=== PATIENT | female | born 2005 | race Caucasian/White ===

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

== ENCOUNTER 2025-02-17 20:47 | Emergency (ER) | payer BC, SELFPAY ==
[2025-02-17] VITALS (10 sets, daily range): BP systolic 130–159; BP diastolic 71–107; PULSE 73–91; RESP 18; TEMP 36.8; O2SAT 98–100; BMI 34.4
--- NOTE | 2025-02-17 21:09 | HMH.EDGENADL ---
Discharge Plan Disposition Patient Disposition: Home, Self-Care Condition: Good Prescriptions Prescriptions: No Action No Known Home Medications Referrals Follow up/Referrals: Chata Whitney PA [Primary Care Provider, Family Practice] - See instructions Activity Restrictions/Add. Instructions Additional Instructions/Restrictions: Please return to the ER if any new or worsening symptoms. If your symptoms persist, please see your primary care doctor and look into a referral for gastroenterology. Clinical Impressions Clinical Impression: Abdominal pain Qualifiers: Abdominal location: generalized Qualified Code(s): R10.84 - Generalized abdominal pain Instructions Patient Instructions: DI for Acute Abdominal Pain Print Language Print Language: Mohawk Discharge ED Provider: Mynor Montero General Adult HPI <ABY Shannon - Last Filed: 02/17/25 21:51> General Chief complaint: Abdominal Pain Stated complaint: abdominal pain x two weeks Time Seen by Provider: 02/17/25 21:02 Mode of Arrival: Ambulatory Source of Information: Patient and Significant Other Description of Symptoms (Recalled from ER Triage Doc. by RN): patient presents for abdominal pain that started 3 days ago. patient stated that the pain is everywhere and rates it 10/10. she endorses nausea/vomiting with it. no urinary or bowel issues. History of Present Illness HPI narrative: 19-year-old female presents the emergency department with diffuse abdominal pain that she states has been going on for 2 weeks that is fairly consistent, worsened within the last 3 days, she has associated nausea and vomiting for the last 2 weeks states that she cannot keep anything down but water . Patient denies any fever or chills, denies any overt chest pain, does state that she has chest pain , at times with her abdominal pain, denies any melena hematochezia hematemesis or hemoptysis, denies any constipation diarrhea no urinary symptomatology, no vaginal bleeding no vaginal discharge, last menstrual cycle was last month. 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 Initial triage vitals unremarkable. Please note that above description of symptoms, in this electronic medical record under categorization of recalled from ER triage doctor by RN are reflective of an initial nursing assessment, however, is not reflective of my full history and physical exam that was personally taken and clarified. Consequentially, this preceding description of symptoms, which may include the patient's categorized chief complaint in the EMR, do not reflect my personal clinical impression, and the ultimate description of history of present illness and patient stated complaints should be deferred to this section of the note. Unless stated otherwise or congruent with this section of the note, additional signs, symptoms, or incongruence should be interpreted as inaccurate with my clinical impression. Onset (ago): week(s) Related Data Home Medications ?Medication ?Instructions ?Recorded ?Confirmed No Known Home Medications 12/22/24 12/22/24 Allergies Allergy/AdvReac Type Severity Reaction Status Date / Time cefdinir (From Omnicef) Allergy Intermediate Unknown Verified 12/22/24 09:43 allergy reaction latex Allergy Intermediate Rash Verified 12/22/24 09:43 morphine Allergy Intermediate Unknown Verified 12/22/24 09:43 allergy reaction Penicillins Allergy Intermediate Unknown Verified 12/22/24 09:43 allergy reaction Sulfa (Sulfonamide Allergy Intermediate Unknown Verified 12/22/24 09:43 Antibiotics) allergy reaction [facility] <ABY Shannon - Last Filed: 02/17/25 21:51> [facility] Disclaimer: The information contained in this section may have been updated after the patient was seen, as this information can be updated by other users. 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 ([facility] 11/03/2006) Cardiac murmur Surgical History History of cholecystectomy History of open heart surgery Status post patch repair of the right coronary artery fistula ([facility] 11/03/2006) Family History Other No significant family history Social History Smoking Status: Light tobacco smoker alcohol intake: never current occupational status: student Travel in the last 8 weeks?: None Have you lived/traveled outside US in past 30 days?: No Contact w/someone who lives/traveled outside US past 30 days?: No Exposure to someone with infectious disease in past 14 days?: No Do you have a fever (greater than 100.4 F or 38 C)?: No Have you tested positive for COVID-19?: No Exposed to someone with COVID-19 in past 14 days?: No Do you have a sore throat?: No Do you have a cough?: No Do you have any weakness?: No Do you have any diarrhea?: No Are you experiencing any unusual bleeding?: No Do you have any muscle aches/pain?: No Do you have any abdominal pain?: No Are you experiencing loss of taste or smell?: No <ABY Shannon - Last Filed: 02/17/25 21:51> ROS Obtained: Yes All systems reviewed & no additional complaints except as documented Physical Exam <ABY Shannon - Last Filed: 02/17/25 21:51> General General appearance: alert and in no apparent distress Head Head exam: atraumatic and normocephalic Eye Eye exam: Present PERRL and EOMI ENT ENT exam: Present mucous membranes moist Neck Neck exam: Present normal inspection Chest Chest inspection: Present normal inspection and symmetric chest wall rise Respiratory Respiratory exam: Present normal lung sounds bilaterally; Absent respiratory distress Cardiovascular Cardiovascular exam: Present regular rate and normal rhythm Abdominal Exam Abdominal exam: Present soft and tenderness; Absent guarding, rebound or rigidity Abdominal tenderness: Present diffuse and mild Extremities Exam Extremities exam: Present normal inspection Neurological Exam Neurological exam: Present alert and oriented X3 Psychiatric Psychiatric exam: Present normal affect Skin Skin exam: Present warm and dry Medical Decision Making <ABY Shannon - Last Filed: 02/17/25 21:51> Medical Records Medical records reviewed: Yes I reviewed the patient's medical records. Screening: Per USPSTF and CDC recommendations, given the prevalence of disease in our region, it is our hospital?s policy to screen for HIV and viral Hepatitis for all patients aged 18 and over and those with ongoing risk factors. [place] Inquiry Pt receiving controlled substance: No Vital Signs: 02/17/25 20:58 02/17/25 21:15 02/17/25 21:30 Temperature 98.2 F Temperature Source Oral Pulse Rate 89 87 Pulse Rate [Right Brachial] 91 H Respiratory Rate 18 Blood Pressure Blood Pressure [Right Arm] 140/84 Blood Pressure Mean Blood Pressure Mean [Right Arm] 102 Blood Pressure Source [Right Arm] Automatic Cuff Blood Pressure Position [Right Arm] Sitting 02 Sat by Pulse Oximetry 100 100 100 Oxygen Delivery Method Room Air Room Air Room Air 02/17/25 21:30 02/17/25 21:45 02/17/25 22:00 Temperature Temperature Source Pulse Rate 89 81 Pulse Rate [Right Brachial] Respiratory Rate Blood Pressure 151/107 H 159/100 H Blood Pressure [Right Arm] Blood Pressure Mean 116 119 Blood Pressure Mean [Right Arm] Blood Pressure Source [Right Arm] Blood Pressure Position [Right Arm] 02 Sat by Pulse Oximetry 99 98 Oxygen Delivery Method Room Air 02/17/25 22:30 02/17/25 23:00 Temperature Temperature Source Pulse Rate 89 88 Pulse Rate [Right Brachial] Respiratory Rate Blood Pressure 130/84 134/71 Blood Pressure [Right Arm] Blood Pressure Mean 99 92 Blood Pressure Mean [Right Arm] Blood Pressure Source [Right Arm] Blood Pressure Position [Right Arm] 02 Sat by Pulse Oximetry 98 100 Oxygen Delivery Method Lab Data Lab results reviewed: Yes I reviewed the patient's lab results. Lab Results 02/17/25 21:28: WBC 7.2, RBC 5.53 H, Hgb 14.9, Hct 45.2, MCV 81.7, MCH 26.9 L, MCHC 33.0, RDW 12.5, Plt Count 285, MPV 11.0 H, Neut % (Auto) 69.2, Lymph % (Auto) 21.4, Owen % (Auto) 6.0, Eos % (Auto) 2.5, Baso % (Auto) 0.6, Neut # (Auto) 5.0, Lymph # (Auto) 1.5, Owen # (Auto) 0.4, Eos # (Auto) 0.2, Baso # (Auto) 0.0, Sodium 139, Potassium 4.1, Chloride 100, Carbon Dioxide 28, Anion Gap 15.1 H, BUN 8, Creatinine 0.70, Estimated Creat Clear 222, Estimated GFR 108, Est GFR ( Amer) 130, Glucose 101 H, Lactate 1.1, Calcium 9.7, Magnesium 1.9, Total Bilirubin 0.5, AST 37 H, ALT 25, Alkaline Phosphatase 72, Total Protein 8.8 H, Albumin 5.1 H, Globulin 3.7 H, Albumin/Globulin Ratio 1.4, Lipase 55, Serum HCG, Qual Negative 02/17/25 22:23: Urine Color Yellow, Urine Appearance Clear, Urine pH 7.0, Ur Specific [place] 1.010, Urine Protein Negative, Urine Glucose (UA) Negative, Urine Ketones Negative, Urine Blood Negative, Urine Nitrate Negative, Urine Bilirubin Negative, Urine Urobilinogen 0.2, Ur Leukocyte Esterase Negative, Urine RBC None, Urine WBC None, Ur Squamous Epith Cells 3-5, Urine Bacteria None 02/17/25 22:24: Urine Opiates Screen Negative, Urine Methadone Screen Negative, Ur Barbituates Screen Negative, Ur Phencyclidine Scrn Negative, Ur Amphetamines Screen Negative, U Benzodiazepines Scrn Negative, Urine Cocaine Screen Negative, U Marijuana (THC) Screen Negative 02/17/25 21:28 02/17/25 21:28 Orders (Tests/Meds): ED MEDICATIONS Discontinued Medications Generic Name Dose Route Start Last Admin Trade Name Magda PRN Reason Stop Dose Admin Iopamidol 75 ml 02/17/25 22:12 02/17/25 22:14 Iopamidol-370 (76%);100ml Bottle IV 02/17/25 22:13 75 ml ONCE ONE Administration Ketorolac Tromethamine 15 mg 02/17/25 21:18 02/17/25 22:01 Ketorolac 15mg/Ml Vial IV 02/17/25 21:19 15 mg ONCE ONE Administration Metoclopramide HCl 10 mg 02/17/25 23:26 02/17/25 23:54 Metoclopramide Hcl 10mg/2ml Vial IVP 02/17/25 23:27 10 mg ONCE ONE Administration Ondansetron HCl 4 mg 02/17/25 21:18 02/17/25 22:01 Ondansetron 4mg/2ml Vial IV 02/17/25 21:19 4 mg ONCE ONE Administration Sodium Chloride 10 ml 02/17/25 22:12 02/17/25 22:13 Sodium Chloride 0.9% 10ml Syr (Rad Only) IV 02/17/25 22:13 10 ml ONCE ONE Administration ORDERS Category Date Time Status CT abdomen pelvis w con Stat Cat Scan 02/17/25 21:16 Completed Complete Blood Count Auto Diff Stat Lab 02/17/25 21:28 Completed Comprehensive Metabolic Panel Stat Lab 02/17/25 21:28 Completed Drug Screen,Urine Stat Lab 02/17/25 22:24 Completed HCG Qualitative, Serum Stat Lab 02/17/25 21:28 Completed Lactic Acid Stat Lab 02/17/25 21:28 Completed Lipase Stat Lab 02/17/25 21:28 Completed Magnesium Stat Lab 02/17/25 21:28 Completed Urinalysis and Microscopic Stat Lab 02/17/25 22:23 Completed Medical Decision Narrative: 19-year-old female presents emergency room with diffuse abdominal pain nausea and vomiting for which she states is going on for 2 weeks, differential diagnose include but not limited to, acute UTI, colitis, ileitis, mesenteric adenitis, pancreatitis, appendicitis, constipation, bowel obstruction, ileus, hyperemesis cannabinoid syndrome, pyelonephritis, among others I discussed this patient case with the attending physician Dr. Montero he saw and examined the patient as well. Will obtain basic laboratory studies, CT and pelvis with contrast, UDS, lactic acid level lipase level magnesium level, UA, hCG qualitative, 15 mg IV Toradol be given for pain and 4 mg IV Zofran CBC is unremarkable Minimal AST elevation at 37, no lipase elevation no lactic acidosis otherwise unremarkable CMP. I discussed this patient's case with the attending physician Dr. Montero at shift change he will be assuming the patient's care/workup, disposition is pending urinalysis laboratory studies and imaging studies. <Mynor Montero, DO - Last Filed: 02/18/25 00:06> Vital Signs: 02/17/25 20:58 02/17/25 21:15 02/17/25 21:30 Temperature 98.2 F Temperature Source Oral Pulse Rate 89 87 Pulse Rate [Right Brachial] 91 H Respiratory Rate 18 Blood Pressure Blood Pressure [Right Arm] 140/84 Blood Pressure Mean Blood Pressure Mean [Right Arm] 102 Blood Pressure Source [Right Arm] Automatic Cuff Blood Pressure Position [Right Arm] Sitting 02 Sat by Pulse Oximetry 100 100 100 Oxygen Delivery Method Room Air Room Air Room Air 02/17/25 21:30 02/17/25 21:45 02/17/25 22:00 Temperature Temperature Source Pulse Rate 89 81 Pulse Rate [Right Brachial] Respiratory Rate Blood Pressure 151/107 H 159/100 H Blood Pressure [Right Arm] Blood Pressure Mean 116 119 Blood Pressure Mean [Right Arm] Blood Pressure Source [Right Arm] Blood Pressure Position [Right Arm] 02 Sat by Pulse Oximetry 99 98 Oxygen Delivery Method Room Air 02/17/25 22:30 02/17/25 23:00 Temperature Temperature Source Pulse Rate 89 88 Pulse Rate [Right Brachial] Respiratory Rate Blood Pressure 130/84 134/71 Blood Pressure [Right Arm] Blood Pressure Mean 99 92 Blood Pressure Mean [Right Arm] Blood Pressure Source [Right Arm] Blood Pressure Position [Right Arm] 02 Sat by Pulse Oximetry 98 100 Oxygen Delivery Method Lab Data Lab Results 02/17/25 21:28: WBC 7.2, RBC 5.53 H, Hgb 14.9, Hct 45.2, MCV 81.7, MCH 26.9 L, MCHC 33.0, RDW 12.5, Plt Count 285, MPV 11.0 H, Neut % (Auto) 69.2, Lymph % (Auto) 21.4, Owen % (Auto) 6.0, Eos % (Auto) 2.5, Baso % (Auto) 0.6, Neut # (Auto) 5.0, Lymph # (Auto) 1.5, Owen # (Auto) 0.4, Eos # (Auto) 0.2, Baso # (Auto) 0.0, Sodium 139, Potassium 4.1, Chloride 100, Carbon Dioxide 28, Anion Gap 15.1 H, BUN 8, Creatinine 0.70, Estimated Creat Clear 222, Estimated GFR 108, Est GFR ( Amer) 130, Glucose 101 H, Lactate 1.1, Calcium 9.7, Magnesium 1.9, Total Bilirubin 0.5, AST 37 H, ALT 25, Alkaline Phosphatase 72, Total Protein 8.8 H, Albumin 5.1 H, Globulin 3.7 H, Albumin/Globulin Ratio 1.4, Lipase 55, Serum HCG, Qual Negative 02/17/25 22:23: Urine Color Yellow, Urine Appearance Clear, Urine pH 7.0, Ur Specific [place] 1.010, Urine Protein Negative, Urine Glucose (UA) Negative, Urine Ketones Negative, Urine Blood Negative, Urine Nitrate Negative, Urine Bilirubin Negative, Urine Urobilinogen 0.2, Ur Leukocyte Esterase Negative, Urine RBC None, Urine WBC None, Ur Squamous Epith Cells 3-5, Urine Bacteria None 02/17/25 22:24: Urine Opiates Screen Negative, Urine Methadone Screen Negative, Ur Barbituates Screen Negative, Ur Phencyclidine Scrn Negative, Ur Amphetamines Screen Negative, U Benzodiazepines Scrn Negative, Urine Cocaine Screen Negative, U Marijuana (THC) Screen Negative Orders (Tests/Meds): ED MEDICATIONS Discontinued Medications Generic Name Dose Route Start Last Admin Trade Name Magda PRN Reason Stop Dose Admin Iopamidol 75 ml 02/17/25 22:12 02/17/25 22:14 Iopamidol-370 (76%);100ml Bottle IV 02/17/25 22:13 75 ml ONCE ONE Administration Ketorolac Tromethamine 15 mg 02/17/25 21:18 02/17/25 22:01 Ketorolac 15mg/Ml Vial IV 02/17/25 21:19 15 mg ONCE ONE Administration Metoclopramide HCl 10 mg 02/17/25 23:26 02/17/25 23:54 Metoclopramide Hcl 10mg/2ml Vial IVP 02/17/25 23:27 10 mg ONCE ONE Administration Ondansetron HCl 4 mg 02/17/25 21:18 02/17/25 22:01 Ondansetron 4mg/2ml Vial IV 02/17/25 21:19 4 mg ONCE ONE Administration Sodium Chloride 10 ml 02/17/25 22:12 02/17/25 22:13 Sodium Chloride 0.9% 10ml Syr (Rad Only) IV 02/17/25 22:13 10 ml ONCE ONE Administration ORDERS Category Date Time Status CT abdomen pelvis w con Stat Cat Scan 02/17/25 21:16 Completed Complete Blood Count Auto Diff Stat Lab 02/17/25 21:28 Completed Comprehensive Metabolic Panel Stat Lab 02/17/25 21:28 Completed Drug Screen,Urine Stat Lab 02/17/25 22:24 Completed HCG Qualitative, Serum Stat Lab 02/17/25 21:28 Completed Lactic Acid Stat Lab 02/17/25 21:28 Completed Lipase Stat Lab 02/17/25 21:28 Completed Magnesium Stat Lab 02/17/25 21:28 Completed Urinalysis and Microscopic Stat Lab 02/17/25 22:23 Completed Medical Decision Narrative: 19-year-old female presents emergency room with diffuse abdominal pain nausea and vomiting for which she states is going on for 2 weeks, differential diagnose include but not limited to, acute UTI, colitis, ileitis, mesenteric adenitis, pancreatitis, appendicitis, constipation, bowel obstruction, ileus, hyperemesis cannabinoid syndrome, pyelonephritis, among others I discussed this patient case with the attending physician Dr. Montero he saw and examined the patient as well. Will obtain basic laboratory studies, CT and pelvis with contrast, UDS, lactic acid level lipase level magnesium level, UA, hCG qualitative, 15 mg IV Toradol be given for pain and 4 mg IV Zofran CBC is unremarkable Minimal AST elevation at 37, no lipase elevation no lactic acidosis otherwise unremarkable CMP. I discussed this patient's case with the attending physician Dr. Montero at shift change he will be assuming the patient's care/workup, disposition is pending urinalysis laboratory studies and imaging studies. DUTCH attestation This is Dr. Montero. I did independently evaluate this patient as well. She is a 19-year-old female with past medical history of open heart surgery for an unknown congenital heart disease who is presenting to the emergency department today for evaluation of abdominal pain. Patient states this pains been going on for the last 2 weeks. Pain is generalized in nature and she cannot localize this to a specific quadrant of the abdomen. She is status post cholecystectomy. On physical exam she has tenderness in all 4 quadrants that is maximally tender in the right upper quadrant. Her abdomen is soft throughout and there is no evidence of peritonitis. Labs were interpreted by me and demonstrate no leukocytosis or anemia. No significant electrolyte derangements or evidence of acute kidney injury. hCG is negative. Urinalysis is negative. Urine drug screen is negative as well. CT scan of the abdomen pelvis as interpreted by me demonstrates no large pneumoperitoneum. Official radiology read is in agreement and states there is no acute abnormality. They do note that the stomach is quite distended with food contents and discussed fixing this with NG tube decompression. I found that this read was quite odd. The patient tells me that she ate an hour prior to arrival and this is likely why her stomach is distended. I had an interactive discussion with the radiologist who read the report and he agrees that this is likely postprandial distention and not pathologic distention. On repeat assessment of the patient she was still experiencing some discomfort so I administered Reglan to the patient. I have asked that she follow-up with her primary care physician and if her pain persist to pursue follow-up referrals to gastroenterology. At this time all questions been answered and all parties are agreeable with the decision to discharge home Critical Care <ABY Shannon - Last Filed: 02/17/25 21:51> Critical Care Time Critical Care Time: No
--- OUTSIDE RECORDS SUMMARY | 2025-02-17 21:13 | XMS_ITS | Clinical Summary ---
Author Organization [facility] Address [address] [place] [address] Care Team Providers Care Glue Jointer Feeder Name Role Phone Ese Alcantara PROFESSOR OF VIOLIN Primary Care Provider [phone] Allergies Active Allergy Reactions Criticality Noted Date Comments Latex Rash Low 11/01/2024 Morphine Anaphylaxis,Swelling High 05/08/2019 Cefdinir Rash Low 12/30/2011 Penicillins Rash Low 12/30/2011 Sulfa Drugs Rash Low 06/24/2017 Only Allergic to a Sulfa Drug starting with Z per mother Medications etonogestrel-eluti ng contraceptive device 68 MG implant 1 each by Implant route 1 time. 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 Generalized anxiety disorder 11/27/2019 Intractable migraine without aura and without status migrainosus 11/27/2019 Tendinitis of left triceps 11/15/2019 Menorrhagia 04/19/2019 Sleep disturbance 12/27/2017 Aortic regurgitation 12/30/2011 Resolved Problems Problem Noted Date Diagnosed Date Resolved Date Calculus of gallbladder with out cholecystitis without obstruction 03/26/2023 03/26/2023 05/05/2023 Exposure to COVID-19 virus 01/18/2020 0 12/24/2024 Dysmenorrhea 03/09/2019 12/24/2024 Encounters Date Type Department Care Team Description 12/20/2024 Telephone [facility] [address] [place] [address] Candace Jean APRN 11/27/2024 2:20 PM EDT Procedure Visit Obstetrics & Gynecology [address] [place] [address] Camilla Maza, PROFESSOR OF VIOLIN, CNM Nexplanon removal (Primary Dx) 11/27/2024 Travel from Last 3 Months Immunizations Immunization Administration [...] Recorded Patient Health Questionnaire-2 Score 0 11/27/2024 [facility] [place] of Occupat ional Health - Occupational Stress [...] place to sleep or slept in a group home (including now)? No 11/12/2023 PHQ-9 Answer Date [...] time in the past 12 m [facility], were you homeless or living in a group home (including now)? No 06/08/2024 AUDIT-C Answer Date [...] [facility]-HIV Screening 2005 [facility]-Hepatitis C Screening 2005 [facility]-Infant/Child/Adol SDOH Screenings 2005 Fluoride Varnish 04/30/2006 HPV Vaccines (2 - 2-dose series) 06/26/2018 12/27/2017, 02/01/2017 [id number] Vaccine ( season) 2024 [facility]-Influenza Vaccine (#1) [...] Procedure Name Priority Date/Time Associated Diagnosis Comments AK REMOVAL DRUG IMPLANT DEVICE Routine 11/27/2024 2:20 PM EDT Nexplanon removal from Last 3 Months Results * AK REMOVAL DRUG IMPLANT DEVICE (11/27/2024 2:20 PM [...] with steri-strips and pressure bandage applied: yes us Camilla Maza APRN, CNM IN CLINIC/BEDSIDE ORDER NOEL Final Result from Last 3 Months Insurance ANTH Care Teams Glue Jointer Feeder Relationship Specialty Start Date End Date Ese Alcantara APRN [address] [place] [phone] PCP - General Family Medicine 09/13/23
--- OUTSIDE RECORDS SUMMARY | 2025-02-17 21:13 | XMS_ITS | Encounter Summary ---
Author Organization [facility] Address [address] [place] [address] Care Team Providers Care Tank Pumper Name Role Phone Ese Alcantara AUTOMOTIVE ENGINEERING TECHNICIAN Primary Care Provider [phone] Encounter Details Date Type Department Care Team (Late st Contact Info) Description 12/20/2024 Telephone [facility] [place] [facility] [address] [place] [id number] Candace Jean APRN [address] [place] [address] Social History Tobacco Use Types [...] Questionnaire-2 Score 0 11/27/2024 [facility] [place] of Occupat ional Health - Occupational Stress [...] any time in the past 12 m [facility], were you homeless or living in [...] Recorded In the past 12 months has [employer], gas, oil, or water company threatened to [...] documented as of this encounter Care Teams Tank Pumper Relationship Specialty Start Date End Date Ese Alcantara APRN Obie TellezKALLI houser [phone] PCP - General Family Medicine 09/13/23 documented as of this encounter
--- OUTSIDE RECORDS SUMMARY | 2025-02-17 21:13 | XMS_ITS | Clinical Summary ---
Author Organization [facility] Address [address] [place] [id number] Phone [email or web address] Care Team Providers Care Room Service Bellhop Name Role Phone Unavailable Primary Care Provider Unavailabl e Allergies Active Allergy Reactions Criticality Noted Date Comments Cefdinir Rash Low 12/30/2011 Latex 10/31/2024 Morphine Anaphylaxis,Swelling High 05/08/2019 Penicillins Rash Low 12/30/2011 Sulfa Antibiotics Rash Low 06/24/2017 Only Allergic to a Sulfa Drug starting with Z per mother Medications clindamycin (CLEOCIN) 300 MG capsule TAKE 1 CAPSULE BY MOUTH EVERY 6 HOURS 10/19/2024 Active methylPREDNISol one (MEDROL DOSPAK) 4 MG tablet TAKE 6 TABLETS ON DAY 1 DIRECTED ON PACKAGE AND DECREASE BY 1 TAB EACH DAY FOR A TOTAL OF 6 DAYS 10/19/2024 Active Active Problems Problem Noted Date Diagnosed Date Local reaction to insect sting 12/05/2024 Superficial laceration of finger 10/04/2024 Insect bite of left lower leg 09/01/2024 Encounters Date Type Department Care Team Description 12/05/2024 11:00 PM EDT Clinical Support [facility] [place] [facility] [address] [place] [address] Local reaction to insect sting, accidental or unintentional, initial encounter (Primary Dx) from Last 3 Months Immunizations [...] B Infection Screening - Triple Screen 08/29/2023 Pneumococcal Immunization (1 of 2 - PCV) 2024 12/22/2006, 08/31/2006, 2005, Additional history exists Annual Preventive Exam 09/08/2024 09/09/2023 Covid-19 Immunization (1 - 2 ) 12/04/2024 Influenza Immunization (#1) 12/04/202402/03, 01/29/2023, 04/23/2022, Additional [...] 04/23/2022 Men B Immunization Completed 06/18/2022, 04/23/2022 Insurance OPT OUT NO COPAY NB
--- NOTE | 2025-02-17 21:16 | CT_ITS ---
PROCEDURE INFORMATION: Exam: CT Abdomen And Pelvis With Contrast Exam date and time: 02/17/2025 10:12 PM Age: 19 years old Clinical indication: Nausea and vomiting; Abdominal pain; Generalized; Additional info: Diffuse abd pain, n/v TECHNIQUE: Imaging protocol: Computed tomography of the abdomen and pelvis with contrast. Radiation optimization: All CT scans at this facility use at least one of these dose optimization techniques: automated exposure control; mA and/or kV adjustment per patient size (includes targeted exams where dose is matched to clinical indication); or iterative reconstruction. Contrast material: ISOVUE; Contrast volume: 75 ml; Contrast route: IV; COMPARISON: CT ABDOMEN PELVIS W CON 12/04/2023 10:44 PM FINDINGS: Esophagus: The esophagus is normal. Liver: The liver is normal. Gallbladder and biliary ducts: There has been a cholecystectomy. Pancreas: Pancreas appears normal. Spleen: Calcified splenic granuloma. Adrenal glands: The adrenal glands appear normal. Kidneys and ureters: The kidneys are normal. Stomach and bowel: Fluid and debris and air-filled distended stomach. Nonspecific bowel gas pattern. Retained stool in the colon. Normal appendix. Appendix: See Stomach and bowel finding. Intraperitoneal space: Unremarkable. No free air. No significant fluid collection. Vasculature: Portal vein, splenic vein, SMV are patent. The aorta is normal. Visceral arteries are patent. Lymph nodes: No free air or fluid or adenopathy. Urinary bladder: The bladder is normal. Reproductive: The uterus is normal. Bilateral 3 cm adnexal cystic lesions.. Bones/joints: Unremarkable. No acute fracture. Soft tissues: Unremarkable. IMPRESSION: 1. No free air or fluid or adenopathy. 2. Fluid and debris and air-filled distended stomach. NG tube decompression may be helpful. 3. Nonspecific bowel gas pattern. Retained stool in the colon. Normal appendix. 4. There has been a cholecystectomy. 5. Bilateral 3 cm adnexal cystic lesions. Ultrasound pelvis may be helpful.
[2025-02-17 21:39] LABS: Hematocrit 45.2 % (37.0-47.0); Hemoglobin 14.9 g/dL (12.2-16.2); Immature Granulocytes % 0.3 %; Mean Corpuscular HGB Conc 33.0 g/dL (31.8-35.4); Mean Corpuscular Hemoglobin 26.9 pg (27.0-31.2); Mean Corpuscular Volume 81.7 fl (81-99); Nucleated Red Blood Cells % 0 %; Platelet Count 285 K/mm3 (142-424); Red Blood Count 5.53 M/mm3 (4.20-5.40); Red Cell Distribution Width-SD 37.5 fL; White Blood Count 7.2 K/mm3 (4.5-13.0)
[2025-02-17 21:42] LABS: Albumin Level 5.1 g/dl (3.5-5.0); Chloride 100 mmol/L (98-107); Potassium 4.1 mmoL/L (3.5-5.1); Sodium 139 mmol/L (136-145)
[2025-02-17 21:45] LABS: Alanine Aminotransferase 25 U/L (12-78); Albumin/Globulin Ratio 1.4 (1.1-1.8); Alkaline Phosphatase 72 U/L (38-126); Anion Gap 15.1 mEq/L (5-15); Aspartate Amino Transferase 37 U/L (14-36); Bilirubin,Total 0.5 mg/dl (0.2-1.3); Blood Urea Nitrogen 8 mg/dl (7-17); Calcium 9.7 mg/dl (8.4-10.2); Carbon Dioxide 28 mmol/L (22.0-30.0); Creatinine Clearance Estimated 222 mL/min (50-200); Creatinine,Serum 0.70 mg/dl (0.52-1.04); Estimated Glomerular Filt Rate 108 ml/min (>60); GFR (African American) 130 ML/MIN (>60); Globulin 3.7 g/dL (1.3-3.2); Glucose 101 mg/dl (74-100); Lipase 55 U/L (23-300); Magnesium 1.9 mg/dl (1.6-2.3); Total Protein,Serum 8.8 g/dl (6.3-8.2)
[2025-02-17 22:00] LABS: HCG Qualitative, Serum Negative (Negative)
[2025-02-17] MEDS: KETOROLAC 15MG/ML VIAL 15 MG IV (22:01)
[2025-02-17] MEDS: ONDANSETRON 4MG/2ML VIAL 4 MG IV (22:01)
[2025-02-17] MEDS: SODIUM CHLORIDE 0.9% 10ML SYR (RAD ONLY) 10 ML IV (22:13)
[2025-02-17] MEDS: IOPAMIDOL-370 (76%);100ML BOTTLE 75 ML IV (22:14)
[2025-02-17 22:25] LABS: Microscopic, Urine URINE MICROSCOPIC (MICROSCOPIC)
[2025-02-17 22:27] LABS: Bilirubin,Urine Negative (Negative); Color,Urine YELLOW (Yellow); Glucose,Urine (UA) Negative (Negative); Ketones,Urine Negative (Negative); Leukocyte Esterase,Urine Negative (Negative); PH,Urine 7.0 (5.0-8.5); Protein,Urine Negative (Negative); Specific Gravity, Urine 1.010 (1.005-1.030); Urobilinogen,Urine 0.2 EU/dl (0.2)
[2025-02-17 22:39] LABS: Amphetamine/Metha Screen,Urine Negative ng/ml (<1000)
[2025-02-17 22:40] LABS: Barbiturates Screen,Urine Negative ng/ml (<200); Benzodiazepines Screen,Urine Negative ng/ml (<200)
[2025-02-17 22:42] LABS: Methadone Screen,Urine Negative ng/ml (<300)
[2025-02-17 22:43] LABS: Opiate Screen,Urine Negative ng/ml (<300)
[2025-02-17 22:44] LABS: Phencyclidine Screen,Urine Negative ng/ml (<25)
[2025-02-17] MEDS: METOCLOPRAMIDE HCL 10MG/2ML VIAL 10 MG IVP (23:54)
[2025-02-18] VITALS: BP 135/90
[2025-02-18 00:05] VITALS: BP 135/90; PULSE 82; RESP 16; TEMP 37; O2SAT 100
== END 2025-02-18 00:10 | disposition home or self-care (01) ==
PROVIDERS: Physician Assistant; Emergency Provider Student in an Organized Health Care Education/Training Program; PCP Student in an Organized Health Care Education/Training Program
DX: R10.84 Generalized abdominal pain (principal)
CPT/HCPCS: 74177; 80053; 80307; 81001; 83605; 83690; 83735; 84703; 85025; 96374; 96375; 99285; J1885; J2405; J2765; Q9967

== ENCOUNTER 2025-03-10 18:56 | Emergency (ER) | payer SELFPAY ==
--- OUTSIDE RECORDS SUMMARY | 2025-02-19 00:50 | XMS_ITS | Encounter Summary ---
Author Organization Healthcare Address [address] [place] [address] Care Team Providers Care Wrist Hemmer Name Role Phone Ese Alcantara CANDE Primary Care Provider [phone] Reason for Visit * Reason Comments Abdominal Pain Encounter Details Date Type Department Care Team (Late st Contact Info) Description 02/19/2025 12:50 AM EST - 02/19/2025 6:15 AM EST Emergency [facility] Emergency Department [address] [place] [address] Jamal Herring, DO [address] [place] [address] Abdominal pain of multiple sites (Primary Dx); Constipation, unspecified constipation type; Adnexal cyst; Urinary tract infection without hematuria, site unspecified Discharge Disposition: Home or Self Care Social [...] Recorded Patient Health Questionnaire-2 Score 0 11/27/2024 [facility] - Occupational Stress Questionnaire Answer [...] place to sleep or slept in a jail (including now)? No 11/12/2023 PHQ-9 Answer Date [...] any time in the past 12 m [facility], were you homeless or living in a jail (including now)? No 06/08/2024 AUDIT-C Answer Date [...] In the past 12 months has e [employer], gas, oil, or water company threatened to [...] Sign Reading Time Taken Comments Blood Pressure 111/71 02/19/2025 6:05 AM EST Pulse 76 02/19/2025 6:05 AM EST Temperature 36.7 C (98.1 F) 02/19/2025 6:05 AM EST Respiratory Rate 16 02/19/2025 6:05 AM EST Oxygen Saturation 97% 02/19/2025 6:05 AM EST Inhaled Oxygen Concentration - - Weight - - Height - - Body Mass Index - - documented in this encounter Functional Status * Calculated C-SSRS Risk Score (Lifetime/Recent) Answer Date of Assessment Author No Risk Indicated 02/19/2025 2:15 AM EST Blu Lawrence RN * Question Answer Date of Assessment Author 1. Wish to be (Past 1 Month) No 025 2:15 AM EST Blu Lawrence, RN 2. Non-Specific Active Suici iain Thoughts (Past 1 Month) No 02/19/2025 2:15 AM EST Nichole Lawrence, RN 6. Suicidal Behavior (Lifetime) No 5 2:15 AM EST Blu Lawrence RN documented as of this encounter Discharge Instructions * Discharge Instructions* Jamal Herring DO - 02/19/2025 6:03 AM EST You have been evaluated in the ED for your complaints. You may follow-up with your PCP next 3-5 business days as needed. If you experience any new or worsening symptoms please return to ED for further evaluation and management. I have written for doxycycline to treat your UTI. Please take this as prescribed. Please take Zofran as needed for nausea. I have written for MiraLax to assist with any constipation that you may have. documented in this encounter Medications at Time of Discharge ondansetron ODT (Zofran-ODT) 4 MG disintegrating tablet Dissolve 1 tablet on the tongue every 6 hours as needed for nausea. 12 tablet 02/19/2025 5 polyethylene glycol (Miralax) 17 g packet Take 17 g by mouth daily for 7 days. 7 packet 02/19/2025 5 doxycycline (Adoxa) 100 MG tabletIndications:Ur inary tract infection without hematuria, site unspecified Take 1 tablet by mouth 2 times a day for 5 days. Take with a full glass of water and do not lie down for at least 30 minutes after 10 tablet 02/19/2025 5 etonogestrel-eluting contraceptive device 68 MG implant 1 each by Implant route 1 time. 5 documented as of this encounter Miscellaneous Notes * Arleth Torres - Jamal Herring DO - 02/19/2025 6:02 AM EST Images from the original note were not included. [id number] Ovarian Cysts The ovaries are 2 small organs located on each side of the womb (uterus). They are part of the female reproductive system. Ovarian cysts are sacs filled with fluid or tissue that form on or inside the ovaries. Ovarian cysts are common, especially during childbearing years. There are different types of cysts.Most are harmless (benign) and go away on their own. They often cause no symptoms. If symptoms do occur, they can include mild pain or pressure in the lower belly (abdomen). Cysts that are large can break (rupture) and bleed. This is called a hemorrhagic cyst. It may causemore severe pain and symptoms. In these cases, you may need hospital care or treatment, such as surgery. You may need more extensive treatment if a cyst makes an ovary twist (called torsion) or if your doctor suspects your cyst is cancerous. But keep in mind that most cysts are not cancerous. General care ? To help relieve pain, your doctor may recommend using [id number] pain medicine. If needed, your doctor may prescribe stronger pain medicine. ? Using heat may help relieve your pain. Consider using a heating pad set on low or a warm water bottle. Taking a warm bath may help you feel more comfortable. ? Depending on the type of cyst you have, your doctor may advise taking control pills. These help shrink cysts in certain cases. They may also help prevent new cysts from forming. If they are prescribed, be sure to take them as directed. ? Your doctor may ask you to watch your symptoms over time to see if they go away or get worse. Regular ultrasound tests may also be advised. They can help check if a cyst goes away or grows in size. Follow-up care Follow up with your doctor as advised. When to contact your doctor Contact your doctor right away if: ? Your pain gets worse or doesn't get better with home treatment. ? You have a fever of 100.4??F (38??C) or higher, or as directed by your doctor. ? You have nausea and vomiting. ? You have weakness, dizziness, or fainting. ? You have abnormal vaginal bleeding. Last Reviewed Date: 2024 00:00:00 ?? [id number] [employer]. All rights reserved. This information is not intended as a substitute for professional medical care. Always follow your healthcare professional's instructions. * Arleth SawyerGARY - Jamal Herring DO - 02/19/2025 6:02 AM EST Images from the original note were not included. [id number] Urinary Tract Infections in Women Urinary tract infections (UTIs) are most often caused by bacteria. These bacteria enter the urinarytract. The bacteria may come from inside the body. Or they may travel from the skin outside the rectum or vagina into the urethra. Female anatomy makes it easy for bacteria from the bowel to enter a woman?s urinary tract. This is the most common source of UTI. This means women develop UTIs more often than men. Pain in or around the urinary tract is a common UTI symptom. Most UTIs are treated with antibiotics. These kill the bacteria. The length of time you need to take them depends on the type of infection. It may be as short as 3 days. If you have repeated UTIs, you may need a low-dose antibiotic for several months. Take antibiotics exactly as directed. Don?t stop taking them until all of the medicine is gone. If you stop taking the antibiotic too soon, the infection may not go away. You may also develop a resistance to the antibiotic. This can make it much harder to treat in the future. Gender words are used here to talk about anatomy and health risk. Please use this information in a way that works best for you and your provider as you talk about your care. Home care The lifestyle changes below may help get rid of your UTI. They may also help prevent future UTIs: ? Drink plenty of fluids. This includes water, juice, or other caffeine-free drinks. Fluids help flush bacteria out of your body. ? Empty your bladder. Always empty your bladder when you feel the urge to pee. And always pee before going to sleep. Urine that stays in your bladder can lead to infection. Try to pee after sex as well. ? Practice good personal hygiene. Wipe yourself from front to back after using the toilet. This helps keep bacteria from getting into the urethra. ? Use condoms during sex. These help prevent UTIs caused by sexually transmitted bacteria. Also don't use spermicides during sex. These can increase the risk for UTIs. Choose other forms of control instead. For women who tend to get UTIs after sex, a low dose of a preventive antibiotic may beused. Be sure to discuss this choice with your healthcare provider. ? Try holistic supplements, such as cranberry tablets These may help prevent UTIs. ? Ask your doctor about topical vaginal estrogen. This may help prevent UTIs if you have gone through menopause. Follow-up care Follow up with your healthcare provider as directed. They may test to make sure the infection has cleared. If needed, more treatment may be started. When to get medical advice Call your healthcare provider right away if any of the following occur: ? Frequent urination ? Pain or burning when passing urine ? Fever of 100.4??F (38??C) or higher, or as directed by your healthcare provider ? Urine looks dark, cloudy, or reddish in color. This may mean that blood is in the urine. ? Urine smells bad ? Feeling pain even when not urinating ? Tiredness ? Pain in the belly (abdomen) area below the bellybutton, or in the back or side, below the ribs ? Nausea or vomiting ? Have a strong urge to urinate, but only a small amount of urine is passed ? Uncomfortable pressure above the pubic bone ? Feeling confused or very tired (in older adults) Last Reviewed Date: 2024 00:00:00 ?? [id number] [employer]. All rights reserved. This information is not intended as a substitute for professional medical care. Always follow your healthcare professional's instructions. * [facility] - Jamal Herring DO - 02/19/2025 6:02 AM EST Images from the original note were not included. [id number] Constipation (Adult) Constipation means that you have less frequent bowel movements (generally fewer than 3 bowel movements a week) than usual. Stools often become very hard and difficult to pass. Constipation is very common. At some point in life, it affects almost everyone. Since everyone's bowel habits are different, what is constipation to 1 person may not be to another. Your healthcare provider may do tests to diagnose constipation. It depends on what they find when evaluating you. Symptoms of constipation include: ? Abdominal pain ? Bloating ? Straining during bowel movements ? Hard, lumpy stools ? Painful bowel movements ? Itching, swelling, bleeding, or pain around the anus ? A feeling that you have not emptied your bowels completely Causes Constipation can have many causes. These include: ? Diet low in fiber ? Not drinking enough liquids ? Lack of exercise or physical activity (especially true for older adults) ? Changes in lifestyle or daily routine, including , aging, work, and travel ? Frequent use or misuse of laxatives ? Ignoring the urge to have a bowel movement or delaying it until later ? Medicines, such as certain prescription pain medicines, iron supplements, antacids, certain antidepressants, and calcium supplements ? Too much dairy ? Conditions or diseases like irritable bowel syndrome, bowel obstructions, stroke, diabetes, thyroid disease, Parkinson disease, hemorrhoids, and colon cancer Complications Possible complications of constipation can include: ? Hemorrhoids ? Rectal bleeding from hemorrhoids or anal fissures (skin tears around the anus) ? Hernias ? Chronic constipation ? Fecal impaction, a severe form of constipation in which a large amount of hard stool is in your rectum that you can't pass ? Bowel obstruction or perforation ? Rectal prolapse (a portion of rectum slipped out of the anal opening) Home care All treatment should be done after talking with your healthcare provider. This is especially true if you have another medical problem, are taking prescription medicines, or are an older adult. Treatment most often involves lifestyle changes. You may also need medicines. Your healthcare provider will tell you which will work best for you. Follow the advice below to help prevent this problem in thefuture. Lifestyle changes These lifestyle changes can help prevent constipation: ? Diet. Eat a high-fiber diet, with fresh fruit and vegetables, and reduce dairy intake, meats, andprocessed foods ? Fluids. It's important to get enough fluids each day. Drink plenty of water when you eat more fiber. If you are on a diet that limits the amount of fluid you can have, talk about this with your healthcare provider. ? Regular exercise. Check with your healthcare provider first. Medicines Take any medicines as directed. Some laxatives are safe to use only now and then. Others can be taken regularly. While laxatives don't cause bowel dependence, they are treating the symptoms. So your constipation may return if you don't make other changes. Talk with your healthcare provider or pharmacist if you have questions. Prescription pain medicines can cause constipation. If you are taking this kind of medicine, ask your healthcare provider if you should also take a stool softener. Medicines you may take to treat constipation include: ? Fiber supplements ? Stool softeners ? Laxatives ? Enemas ? Rectal suppositories Follow-up care Follow up with your healthcare provider if symptoms don't get better in the next few days. You may need to have more tests or see a specialist. Call 911 Call 911 if any of these occur: ? Trouble breathing ? Stiff, rigid abdomen that is severely painful to touch ? Large amounts of blood in the stool ? Confusion ? Fainting or loss of consciousness ? Rapid heart rate ? Chest pain When to get medical advice Call your healthcare provider right away if any of these occur: ? Fever of 100.4??F (38??C) or higher, or as directed by your healthcare provider ? Failure to resume normal bowel movements ? Pain in your abdomen or back gets worse ? Nausea or vomiting ? Swelling in your abdomen ? Small amount of blood in the stool ? Black, tarry stool ? Weight loss without trying ? Weakness Last Reviewed Date: 2024 00:00:00 ?? [id number] [employer]. All rights reserved. This information is not intended as a substitute for professional medical care. Always follow your healthcare professional's instructions. * Wandy Blake APRN - 02/19/2025 4:41 AM EST Images from the original note were not included. [id number] Unknown Causes of Abdominal Pain (Adult) The exact cause of your belly (abdominal) pain is not clear. Your exam and tests don't suggest a dangerous cause at this time. This does not mean that this is something to worry about. Everyone likesto know the exact cause of the problem. But sometimes with belly pain, there is no clear-cut cause,and this could be a good thing. Your symptoms can be treated, and you should feel better. Your condition does not seem serious now. But sometimes the signs of a serious problem may take more time to appear. For this reason, it's important for you to watch for any new symptoms, problems, or if your condition gets worse. Over the next few days, the abdominal pain may come and go. Or it may be constant. Other common symptoms can include nausea and vomiting. Sometimes it can be difficult to tell if you feel nauseous. You may just feel bad and not connect that feeling to nausea. Constipation, diarrhea, and a fever maygo along with the pain. The pain may continue even if treated correctly over the following days. Depending on how things go, sometimes the cause can become clear and you may need more or different treatment. You may also need other evaluations, medicines, or tests. Home care Your healthcare provider may prescribe medicine for pain, symptoms, or an infection. Follow the healthcare provider's instructions for taking these medicines. General care ? Rest as much as you can until your next exam. No strenuous activities. ? Try to not do anything that may have caused your symptoms. This might be not taking any medicinesunless otherwise directed by your healthcare provider. It might be not eating certain foods or doing certain activities. ? Find positions that ease discomfort. A small pillow placed on your belly may help relieve pain. ? Something warm on your belly, such as a heating pad, may help, but be careful not to burn yourself. Diet ? Don?t force yourself to eat, especially if having cramps, vomiting, or diarrhea. ? Water is important so you don't get dehydrated. Soup may also be good. Sports drinks may also help, especially if they are not too acidic. Don't drink sugary drinks as this can make things worse. Take liquids in small amounts. Don?t guzzle them. ? Caffeine sometimes makes the pain and cramping worse. ? Don?t take dairy products if you have vomiting or diarrhea. ? Don't eat large amounts at a time. Eat several small meals during the day instead of 2 or 3 larger meals. Wait a few minutes between bites. ? Eat a diet low in fiber (called a low-residue diet). Foods allowed include refined breads, white rice, fruit and vegetable juices without pulp, tender meats. These foods will pass more easily through the intestine. ? Don?t have whole-grain foods, whole fruits and vegetables, meats, seeds, and nuts, fried or fattyfoods, dairy, alcohol and spicy foods until your symptoms go away. Follow-up care Follow up with your healthcare provider, or as advised, if your pain does not begin to improve in the next 24 hours. Call 911 Call 911 if any of these occur: ? Trouble breathing ? Confusion ? Fainting or loss of consciousness ? Rapid heart rate ? Seizure When to get medical advice Call your healthcare provider right away if any of these occur: ? Pain gets worse or moves to the right lower abdomen ? Vomiting or diarrhea that is new or gets worse ? Swelling of the abdomen ? Unable to pass stool for more than 3 days ? Fever of 100.4??F (38??C) or higher, or as directed by your healthcare provider ? Blood in vomit or bowel movements (dark red or black color) ? Yellow color of eyes and skin (jaundice) ? Weakness, dizziness ? Chest, arm, back, neck, or jaw pain ? Can't keep down medicines, liquids, or water because of too much vomiting ? If you have a vagina: unexpected vaginal bleeding or missed period Last Reviewed Date: 2023 00:00:00 ?? [id number] [employer]. All rights reserved. This information is not intended as a substitute for professional medical care. Always follow your healthcare professional's instructions. * ED Provider Notes - Jamal Herring DO - 02/19/2025 12:23 AM EST Images from the original note were not included. 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 Patient reports RUQ and RLQ abdominal pain x 2-3 weeks. She has associated nausea and vomiting. Intermittent chest burning. Symptoms are worse when lying flat, improved with sitting upright. Food worsens pain. Denies any urinary symptoms. LMP end of Oct. Normal bowel movements. Patient was seen at [facility] last night, was given pain meds that initially improved symptoms. She wasadvised to return for any worsening pain, her mom instructed her to a different hospital for another workup. Patient reports a normal CT scan at the ED last night. History provided by: Patient and significant other parts interpreter used: No Patient History Past Medical History[1] Surgical History[2] Family History[3] Social History[4] Allergies: Allergies[5] Physical Exam ED Triage Vitals [02/19/25 0048] Temp Heart Rate Resp BP 36.9 ??C (98.4 ??F) 82 18 137/89 SpO2 Temp Source Heart Rate Source Patient Position 97 % Oral Monitor Sitting BP Location FiO2 (%) Right arm -- Physical Exam Vitals and nursing note reviewed. Constitutional: General: She is not in acute distress. Appearance: She is well-developed. HENT: Head: Normocephalic and atraumatic. Eyes: Conjunctiva/sclera: Conjunctivae normal. Cardiovascular: Rate and Rhythm: Normal rate and regular rhythm. Heart sounds: No murmur heard. Pulmonary: Effort: Pulmonary effort is normal. No respiratory distress. Breath sounds: Normal breath sounds. Abdominal: General: Bowel sounds are normal. Palpations: Abdomen is soft. Tenderness: There is abdominal tenderness in the right upper quadrant and right lower quadrant. There is no right CVA tenderness or left CVA tenderness. Musculoskeletal: General: No swelling. Cervical back: Neck supple. Skin: General: Skin is warm and dry. Capillary Refill: Capillary refill takes less than 2 seconds. Findings: No rash. Neurological: Mental Status: She is alert. GCS: GCS eye subscore is 4. GCS verbal subscore is 5. GCS motor subscore is 6. Cranial Nerves: Cranial nerves 2-12 are intact. Sensory: Sensation is intact. Motor: Motor function is intact. Coordination: Coordination is intact. Gait: Gait is intact. Psychiatric: Mood and Affect: Mood normal. Speech: Speech normal. Behavior: Behavior normal. Thought Content: Thought content normal. No data recorded ED Course & MDM - Assessment: 19 y.o. female presents to ED with complaint of Right sided abdominal pain. It should be noted thatthe chronic conditions includes as listed above, which currently is at goal therapy. This complicates the clinical picture because it Comorbidities: complicates the clinical workup and increases the risk for morbidity Differential Diagnosis: In order to fully explore the differential diagnosis the following treatments and tests were ordered: ED Medication Administration from 02/19/2025 0023 to 02/21/2025 2254 Date/Time Order Dose Route Action 02/19/2025 0235 EST famotidine PF (Pepcid) injection 20 mg 20 mg Intravenous Given 02/19/2025 0235 EST ketorolac (Toradol) injection 15 mg 15 mg Intravenous Given 02/19/2025 0344 EST ondansetron (Zofran) injection 4 mg 4 mg Intravenous Given 02/19/2025 034 EST oxyCODONE (Roxicodone) immediate release tablet 5 mg 5 mg Oral Given All Other Orders Ordered Status Ordering Provider 02/19/25402 Urine Culture Once Final result WANDY GARCIA 02/19/25 0403 SEND FARRAH MESSAGE Once Final result WANDY GARCIA P 02/19/25 0312 US Pelvis Transvaginal (non ) Once Final result WANDY GARCIA P 02/19/25 0249 Urinalysis Microscopic Examination Once Final result WANDY GARCIA P 02/19/25 0112 CMP STAT Final result WANDY GARCIA P 02/19/25 011 CBC w/diff STAT Final result WANDY GARCIA P 02/19/25 011 Lipase STAT Final result WANDY GARCIA P 02/19/25 0112 Lactic acid, venous STAT Final result WANDY GARCIA P 02/19/25 0112 hCG qualitative STAT Final result WANDY GARCIA P 02/19/25 0112 Urinalysis with reflex microscopic AND reflex culture (IF UTI SUSPECTED) STAT Final result WANDY GARCIA P 02/19/25 0112 Once Canceled WANDY GARCIA P 02/19/25 011 Hepatitis C Antibody - ED Once Final result WANDY GARCIA P 02/19/25 011 ED Protocol - HIV 1/2 Antibody/Antigen Screen Once Final result WANDY GARCIA P 02/19/25 011 Urinalysis with reflex microscopic (Culture NOT Included) PROCEDURE ONCE Final result WANDY GARCIA P 02/19/25 011 Urine Myles Panel PROCEDURE ONCE Final result WANDY GARCIA P 02/19/25 0112 ED HIV 1/2 Antibody/Antigen Screen w/Reflex to HIV 1/2 Differentiation PROCEDURE ONCE Final result WANDY GARCIA ED Course as of 02/21/25 2254 WedFeb 19, 2025228 Lactate: 1.0 [GG] 022 Lipase(!): 18 [GG] 228 CBC unremarkable [GG] 022 CMP unremarkable [GG] 022 Test: Negative [GG] 0242 Reached out to [facility], awaiting results to be faxed from CT imaging last night. [GG] 0337 Leukocytes, Urine(!): Small [GG] 0337 Nitrite, Urine: Negative [GG] 0337 RBC, Urine: <1 [GG] 0337 WBC, Urine(!): 21 - 50 [GG] 0337 Squamous Epithelial Cells(!): 6 - 10 [GG] 0354 CT abdomen w/contrast reviewed from OSH, no free air or fluids, or adenopathy, Normal appendix, Retained stool in the colon, Fluid and debris & air filled distended stomach, Nonspecific bowel gas pattern, bilateral 3cm adnexal cystic lesions. Labs unremarkable, will order Pelvic US for further evaluation of RLQ pain. [GG] 0601 US Pelvis Transvaginal (non ) IMPRESSION: Normal pelvic ultrasound. 3.3 cm left ovarian cyst. [EB] ED Course User Index [EB] Jamal Herring, DO [GG] Wandy Garcia, SIGNALS ANALYST Clinical Impressions as of 02/21/25 0081 Abdominal pain of multiple sites Constipation, unspecified constipation type Adnexal cyst Urinary tract infection without hematuria, site unspecified Dr. Herring: Patient remained hemodynamically stable in no acute distress. Transvaginal ultrasound did show a 3.3 cm left ovarian cyst. Patient is not having any pain at this time. I discussed ED workup and was as well as current plan to discharge home. We will also send patient home with doxycyclineto treat her UTI. Provided her with strict return precautions in his stools concerning follow up here she verbalized understanding and agreement. Social Determinates of Health Risks (including Economic Stability, Education and level of understanding, Healthcare access and quality and concerning social factors): None identified on this visit Ultimately, this patient was Was discharged Home (Discharge) The primary encounter diagnosis was Abdominal pain of multiple sites. Diagnoses of Constipation, unspecified constipation type, Adnexal cyst, and Urinary tract infection without hematuria, site unspecified were also pertinent to this visit. . Patient was counseled on the diagnoses. Discharge medications if any are listed below. Listed medications are thought be either curative for listed diagnoses or will help control ongoing symptoms. Patient is requested to follow up with Patient's Primary Care Provider in order to obtain routine follow-up. Instructions on follow up as well as precautions to return to the ER provided verbally by the EM provider, as well as written in patients d ischarge education packet. ED Prescriptions Medication Sig Dispense Start Date End Date Auth. Provider polyethylene glycol (Miralax) 17 g packet Take 17 g by mouth daily for 7 days. 7 packet 02/19/2025 02/26/2025 Wandy Garcia APRN doxycycline (Adoxa) 100 MG tablet Take 1 tablet by mouth 2 times a day for 5 days. Take with a fullglass of water and do not lie down for at least 30 minutes after 10 tablet 02/19/2025 02/24/2025 Jamal Herring DO ondansetron ODT (Zofran-ODT) 4 MG disintegrating tablet Dissolve 1 tablet on the tongue every 6 hours as needed for nausea. 12 tablet 02/19/2025 03/21/2025 Jamal Herring DO Discharge Instructions You have been evaluated in the ED for your complaints. You may follow-up with your PCP next 3-5 business days as needed. If you experience any new or worsening symptoms please return to ED for further evaluation and management. I have written for doxycycline to treat your UTI. Please take this as prescribed. Please take Zofran as needed for nausea. I have written for MiraLax to assist with any constipation that you may have. Disposition Discharge AVS ([place] Snapshot) - Printed 02/19/2025 Follow-Ups: Follow up with Ese Alcantara APRN (Family Medicine) - Wandy Garcia APRN 02/19/25 0505 Wandy Garcia APRN 02/19/25 0501 I attest to being involved in more than half the total time in patient care. Jamal Herring DO [1] Past Medical History: Diagnosis Date Bug bite with infection 08/07/2019 Conversions - Other Congestive Heart Failure Coronary artery aneurysm Coronary artery fistula Dysmenorrhea 03/09/19 Hand numbness 01/23/2019 Nausea and vomiting RUQ pain Tendinitis of left triceps 11/15/2019 Unqualified visual loss, left eye, normal vision right eye Vision loss, left eye [2] Past Surgical History: Procedure Laterality Date CARDIAC CATHETERIZATION MULTIPLE CARDIAC SURGERY ASD Repair CHOLECYSTECTOMY N/A 05/05/2023 Laparoscopic GALLBLADDER SURGERY OTHER SURGICAL HISTORY coronary artery fistula s/p repair [3] Family History Problem Relation Name Age of [...] problems Neg Hx Malig Hyperthermia Neg Hx [4] Tobacco Use Smoking status: Never Passive exposure: Never Smokeless tobacco: Never Tobacco comments: Vape Vaping Use Vaping status: Some Days Substances: Nicotine, Flavoring Devices: Disposable Substance Use Topics Alcohol use: Never Drug use: Never [5] Allergies Allergen Reactions Morphine Anaphylaxis and Swelling Latex Rash Omnicef [Cefdinir] Rash Penicillins Rash Sulfa Drugs Rash Only Allergic to a Sulfa Drug starting with Z per mother Jamal Herring DO 02/21/25 5624 * ED Triage Notes - Darci Cruz RN - 02/19/2025 12:23 AM EST Pt presents with intermittent RUQ and RLQ abdominal pain x2 weeks. Pt also endorses N/V. Pt was seen at [facility] yesterday where labs and CT was negative but pt states she is still having pain. documented in this encounter Plan of Treatment Not on file documented as of this encounter Procedures Procedure Name Priority Date/Time Associated Diagnosis Comments US PELVIS TRANSVAGINAL STAT 4:26 AM EST SEND FARRAH MESSAGE STAT 02/19/2025 2: 40 AM EST URINALYSIS WITH REFLEX MICROSCOPIC AND CULTURE STAT 02/19/2025 2:40 AM EST URINE MYLES PANEL STAT 02/19/2025 2:40 AM EST URINALYSIS MICROSCOPIC FOR UA REFLEX STAT 02/19/2025 2:40 AM EST URINALYSIS WITH REFLEX MICROSCOPIC STAT 02/19/2025 2:40 AM EST URINE CULTURE STAT 02/19/2025 2:40 AM EST ED HIV 1/2 ANTIBODY/ANTIGEN SCREEN WITH REFLEX TO HIV I/II DIFFERENTIATION STAT 02/19/2025 1:45 AM EST ED PROTOCOL HIV 1/2 ANTIBODY/ANTIGEN SCREEN W/REFLEX TO HIV 1/2 ANTIBODY DIFFERENTIATION STAT 02/19/2025 1:45 AM EST LACTATE, VENOUS STAT 02/19/2025 1:45 AM EST HEPATITIS C ANTIBODY - ED W/REFLEX TO HCV QUANT PCR STAT 02/19/2025 1:45 AM EST CBC WITH AUTO DIFFERENTIAL STAT 02/19/2025 1:45 AM EST TEST QUALITATIVE PLASMA STAT 02/19/2025 1:45 AM EST LIPASE, PLASMA STAT 02/19/2025 1:45 AM EST COMPREHENSIVE METABOLIC PANEL, PLASMA STAT 02/19/2025 1:45 AM EST documented in this encounter Results * US Pelvis Transvaginal (non ) (02/19/2025 4:26 AM EST) Anatomical Region Laterality Modality Pelvis Ultrasound Impressions 02/19/2025 5:16 AM EST Normal pelvic ultrasound. 3.3 cm left ovarian cyst. CRITICAL RESULT: No. COMMUNICATION: Per this written report. By electronically signing this report, I, the attending physician, attest that I have personally reviewed the images/data for the above examination(s) and agree with the final edited report. Drafted by Cal Ricardo MD on 02/19/2025 4:46 AM Final report signed by Manoj Brock MD on 02/19/2025 5:16 AM Narrative 02/19/2025 5:16 AM EST CLINICAL INDICATION: RLQ pain TECHNIQUE: Multiplanar transvaginal grayscale and color Doppler ultrasound imaging of the pelvis was performed. Transvaginal scanning was performed to increase imaging detail and to improve diagnostic accuracy. Color doppler ultrasound imaging and spectral waveform analysis was performed to evaluate for possible ovarian torsion. COMPARISON: Abdominal ultrasound September 28, 2013 FINDINGS: Uterus: The uterus has normal echogenicity and measures 6.6 x 3.0 x 5.2 cm. No uterine mass. The endometrium measures 10 mm and is not thickened. Adnexa: Both ovaries have normal echogenicity and size. 3.3 cm left ovarian cyst. Color Doppler imaging and spectral analysis was performed. Somewhat limited evaluation of blood flow to the right ovary given adjacent bowel movement, though within the limitations of the exam, color doppler imaging demonstrated normal blood flow to both ovaries. Spectral waveform analysis demonstrated normal arterial and venous waveforms within both ovaries. Fluid Survey: No free fluid in the pelvis. Procedure Note Manoj Brock MD - 02/19/2025 CLINICAL INDICATION: RLQ pain TECHNIQUE: Multiplanar transvaginal grayscale and color Doppler ultrasound imaging ofthe pelvis was performed. Transvaginal scanning was performed to increaseimaging detail and to improve diagnostic accuracy. Color dopplerultrasound imaging and spectral waveform analysis was performed toevaluate for possible ovarian torsion. COMPARISON: Abdominal ultrasound September 28, 2013 FINDINGS: Uterus: The uterus has normal echogenicity and measures 6.6 x 3.0 x 5.2cm. No uterine mass. The endometrium measures 10 mm and is not thickened. Adnexa: Both ovaries have normal echogenicity and size. 3.3 cm leftovarian cyst. Color Doppler imaging and spectral analysis was performed.Somewhat limited evaluation of blood flow to the right ovary givenadjacent bowel movement, though within the limitations of the exam, colordoppler imaging demonstrated normal blood flow to both ovaries. Spectralwaveform analysis demonstrated normal arterial and venous waveforms withinboth ovaries. Fluid Survey: No free fluid in the pelvis. IMPRESSION: Normal pelvic ultrasound. 3.3 cm left ovarian cyst. CRITICAL RESULT: No. COMMUNICATION: Per this written report. By electronically signing this report, I, the attending physician, attestthat I have personally reviewed the images/data for the aboveexamination(s) and agree with the final edited report. Drafted by Cal Ricardo MD on 02/19/2025 4:46 AM Final report signed by Manoj Brock MD on 02/19/2025 5:16 AM us Wandy Garcia SIGNALS ANALYST IMG US PROCEDURES Final Res ult * SEND FARRAH MESSAGE (02/19/2025 2:40 AM EST) Urine Urine specimen obtained by clean catch procedure / Unknown Non-blood Collection / Unknown 02/19/2025 2:40 AM EST 02/19/2025 2:46 AM EST us Wandy Garcia APRN LAB URINE ORDERABLES Final Result Performing Organization Address [facility] de Phone Number [facility] [address] [place] [address] * Urine Culture (02/19/2025 2:40 AM EST) Culture 10,000 - 100,000 CFU/mL Mixed urogenital, fecal, or skin martha present. 02/20/2025 8:39 AM EST [facility] Urine Urine specimen obtained by clean catch procedure / Unknown Non-blood Collection / Unknown 02/19/2025 2:40 AM EST 02/19/2025 2:46 AM EST us Wandy Garcia APRN LAB MICROBIOLOGY - GENERAL ORDERABLES Final Result Performing Organization Address City/[facility] Co de Phone Number [facility] [address] [place] [address] * Urinalysis Microscopic Examination (02/19/2025 2:40 AM EST) Urine Urine specimen obtained by clean catch procedure / Unknown Non-blood Collection / Unknown 02/19/2025 2:40 AM EST 02/19/2025 2:46 AM EST us Wandy Garcia APRN LAB URINE ORDERABLES Final Result [facility] [address] [place] [address] * Urine Myles Panel (02/19/2025 2:40 AM EST) Extra Sent for Culture 02/19/2025 4:03 AM EST [facility] Urine Urine specimen obtained by clean catch procedure / Unknown Non-blood Collection / Unknown 02/19/2025 2:40 AM EST 02/19/2025 2:46 AM EST Wandy Garcia APRN LAB URINE ORDERABLES Final Result Performing Organization Address City/[facility]/ZIP Co de Phone Number [facility] [address] [place] [address] * (ABNORMAL) Urinalysis with reflex microscopic (Culture NOT Included) (02/19/2025 2:40 AM EST) Color, Urine Yellow LAB URINALYSIS - AUTOMATED METHOD 02/19/2025 3:02 AM EST [facility] Clarity, Urine Cloudy LAB URINALYSIS - AUTOMATED METHOD 02/19/2025 3:02 AM EST [facility] Spec Lampe, Urine 1.018 1.005 - 1.030 LAB URINALYSIS - AUTOMATED METHOD 02/19/2025 3:02 AM EST [facility] pH, Urine 7.5 5.0 - 8.0 LAB URINALYSIS - AUTOMATED METHOD 02/19/2025 3:02 AM EST [facility] Protein, Urine Negative Negative mg/dL LAB URINALYSIS - AUTOMATED METHOD 02/19/2025 3:02 AM EST [facility] Glucose, Urine Negative Negative mg/dL LAB URINALYSIS - AUTOMATED METHOD 02/19/2025 3:02 AM EST [facility] Ketones, Urine Negative Negative mg/dL LAB URINALYSIS - AUTOMATED METHOD 02/19/2025 3:02 AM EST [facility] Blood, Urine Negative Negative LAB URINALYSIS - AUTOMATED METHOD 02/19/2025 3:02 AM EST [facility] Bilirubin, Urine Negative Negative LAB URINALYSIS - AUTOMATED METHOD 02/19/2025 3:02 AM EST [facility] Urobilinogen, Urine 0.2 0.2 to 1.0 mg/dL LAB URINALYSIS - AUTOMATED METHOD 02/19/2025 3:02 AM EST [facility] Leukocytes, Urine Small(A) Negative LAB URINALYSIS - AUTOMATED METHOD 02/19/2025 3:02 AM EST [facility] Nitrite, Urine Negative Negative LAB URINALYSIS - AUTOMATED METHOD 02/19/2025 3:02 AM EST [facility] RBC, Urine <1 0 to 3 /HPF 02/19/2025 3:02 AM EST [facility] Comment:This result was prev iously suppressed from the chart. WBC, Urine 21 - 50(A) 0 to 5 /HPF 02/19/2025 3:02 AM EST [facility] Comment:This result was prev iously suppressed from the chart. Squamous Epithelial Cells 6 - 10(A) 0 to 5 /HPF 02/19/2025 3:02 AM EST [facility] Comment:This result was prev iously suppressed from the chart. Hyaline Casts 0 - 2 0 to 5 /LPF 02/19/2025 3:02 AM EST [facility] Comment:This result was prev iously suppressed from the chart. Bacteria, Urine Present Negative 02/19/2025 3:02 AM EST [facility] Comment:This result was prev iously suppressed from the chart. Urine Urine specimen obtained by clean catch procedure / Unknown Non-blood Collection / Unknown 02/19/2025 2:40 AM EST 02/19/2025 2:46 AM EST Narrative [facility] - 02/19/2025 3:02 AM EST Performed by manual method Wandy Garcia APRN LAB URINE ORDERABLES Final Result [facility] [address] [place], [place] [id number] * ED HIV 1/2 Antibody/Antigen Screen w/Reflex to HIV 1/2 Differentiation (02/19/2025 1:45 AM EST) HIV 1 & 2 Antibody/Antigen Screen Non Reactive Non Reactive 02/19/2025 2:23 AM EST [facility] Comment:Screening for HIV 1 & 2 antibodies, and P24 antigen is NONREACTIVE. No confirmatory testing is required. Blood Venous blood specimen / Unknown Venipuncture / Unknown 02/19/2025 1:45 AM EST 02/19/2025 1:51 AM EST Wandy Garcia APRN LAB BLOOD ORDERABLES Final Result Performing Organization Address City/[facility] Co de Phone Number [facility] [address] [place] [address] * Hepatitis C Antibody - ED (02/19/2025 1:45 AM EST) Hepatitis C Antibody Negative Negative 02/19/2025 2:19 AM EST [facility] Blood Venous blood specimen / Unknown Venipuncture / Unknown 02/19/2025 1:45 AM EST 02/19/2025 1:51 AM EST Wandy Garcia APRN LAB BLOOD ORDERABLES Final Result Performing Organization Address [facility] Phone Number [facility] [address] [place] [address] * hCG qualitative (02/19/2025 1:45 AM EST) Test Negative Negative 02/19/2025 2:14 AM EST [facility] Blood Venous blood specimen / Unknown Venipuncture / Unknown 02/19/2025 1:45 AM EST 02/19/2025 1:51 AM EST Narrative [facility] - 02/19/2025 2:14 AM EST Reference Range: Males and non- females: Negative. Wandy Garcia APRN LAB BLOOD ORDERABLES Final Result Performing Organization Address City/[facility] de Phone Number [facility] [address] [place] [address] * Lactic acid, venous (02/19/2025 1:45 AM EST) Lactate, Venous, Whole Blood 1.0 0.5 - 2.2 mmol/L LAB HEMATOLOGY METHOD 02/19/2025 1:55 AM EST [facility] Blood Venous blood specimen / Unknown Venipuncture / Unknown 02/19/2025 1:45 AM EST 02/19/2025 1:51 AM EST Wandy Garcia APRN LAB BLOOD ORDERABLES Final Result Performing Organization Address City/[facility]/ZIP Co de Phone Number [facility] [address] [place] [address] * (ABNORMAL) Lipase (02/19/2025 1:45 AM EST) Pathologist [facility] Lipase, Plasma 18(L) 19 - 63 U/L 02/19/2025 2:14 AM EST [facility] Blood Venous blood specimen / Unknown Venipuncture / Unknown 02/19/2025 1:45 AM EST 02/19/2025 1:51 AM EST Wandy Garcia APRN LAB BLOOD ORDERABLES Final Result Performing Organization Address [facility] Co de Phone Number [facility] [address] [place] [address] * CBC w/diff (02/19/2025 1:45 AM EST) Pathologist [facility] WBC Count 8.09 3.70 - 10.30 10*3/uL LAB HEMATOLOGY METHOD 02/19/2025 1:54 AM EST [facility] RBC Count 5.05 3.90 - 5.20 10*6/uL LAB HEMATOLOGY METHOD 02/19/2025 1:54 AM EST [facility] HGB 13.6 11.2 - 15.7 g/dL LAB HEMATOLOGY METHOD 02/19/2025 1:54 AM EST [facility] HCT 40.9 34.0 - 45.0 % LAB HEMATOLOGY METHOD 02/19/2025 1:54 AM EST [facility] Platelet Count 243 155 - 369 10*3/uL LAB HEMATOLOGY METHOD 02/19/2025 1:54 AM EST [facility] MCV 81 79 - 98 fL LAB HEMATOLOGY METHOD 02/19/2025 1:54 AM EST [facility] MCH 26.9 26.0 - 32.0 pg LAB HEMATOLOGY METHOD 02/19/2025 1:54 AM EST [facility] MCHC 33.3 30.7 - 35.5 g/dL LAB HEMATOLOGY METHOD 02/19/2025 1:54 AM EST [facility] RDW 12.4 11.5 - 14.5 % LAB HEMATOLOGY METHOD 02/19/2025 1:54 AM EST [facility] MPV 10.6 8.8 - 12.5 fL LAB HEMATOLOGY METHOD 02/19/2025 1:54 AM EST [facility] nRBC 0.0 <=0.0 per 100 WBCs LAB HEMATOLOGY METHOD 02/19/2025 1:54 AM EST [facility] Differential Type Automated LAB HEMATOLOGY METHOD 02/19/2025 1:54 AM EST [facility] Neutrophils % 63 % LAB HEMATOLOGY METHOD 02/19/2025 1:54 AM EST [facility] Lymphocytes % 25 % LAB HEMATOLOGY METHOD 02/19/2025 1:54 AM EST [facility] Monocytes % 9 % LAB HEMATOLOGY METHOD 02/19/2025 1:54 AM EST [facility] Eosinophils % 2 % LAB HEMATOLOGY METHOD 02/19/2025 1:54 AM EST [facility] Basophils % 1 % LAB HEMATOLOGY METHOD 02/19/2025 1:54 AM EST [facility] Immature Granulocytes % 0 % LAB HEMATOLOGY METHOD 02/19/2025 1:54 AM EST [facility] Neutrophils Absolute 5.11 1.60 - 6.10 10*3/uL LAB HEMATOLOGY METHOD 02/19/2025 1:54 AM EST [facility] Lymphocytes Absolute 2.02 1.20 - 3.90 10*3/uL LAB HEMATOLOGY METHOD 02/19/2025 1:54 AM EST [facility] Monocytes Absolute 0.70 0.30 - 0.90 10*3/uL LAB HEMATOLOGY METHOD 02/19/2025 1:54 AM EST [facility] Eosinophils Absolute 0.19 0.00 - 0.50 10*3/uL LAB HEMATOLOGY METHOD 02/19/2025 1:54 AM EST [facility] Basophils Absolute 0.05 0.00 - 0.10 10*3/uL LAB HEMATOLOGY METHOD 02/19/2025 1:54 AM EST [facility] Immature Granulocytes Absolute 0.02 0.00 - 0.06 10*3/uL LAB HEMATOLOGY METHOD 02/19/2025 1:54 AM EST [facility] Blood Venous blood specimen / Unknown Venipuncture / Unknown 02/19/2025 1:45 AM EST 02/19/2025 1:51 AM EST [facility] - 02/19/2025 1:54 AM EST Therapeutic decision making should be based on absolute values, rather than percentages. us Wandy Felixig SIGNALS ANALYST LAB BLOOD ORDERABLES Final Result [facility] [address] [place] [address] * CMP (02/19/2025 1:45 AM EST) Glucose, Plasma 90 74 - 99 mg/dL 02/19/2025 2:14 AM EST [facility] BUN, Plasma 8 7 - 21 mg/dL 02/19/2025 2:14 AM EST [facility] Creatinine, Plasma 0.76 0.60 - 1.10 mg/dL 02/19/2025 2:14 AM EST [facility] BUN/Creatinine Ratio 11 02/19/2025 2:14 AM EST [facility] Sodium, Plasma 137 136 - 145 mmol/L 02/19/2025 2:14 AM EST [facility] Potassium, Plasma 4.2 3.6 - 4.9 mmol/L 02/19/2025 2:14 AM EST [facility] Chloride, Plasma 103 97 - 107 mmol/L 02/19/2025 2:14 AM EST [facility] CO2, Plasma 28 22 - 29 mmol/L 02/19/2025 2:14 AM EST [facility] Anion Gap 6 6 - 16 mmol/L 02/19/2025 2:14 AM EST [facility] Total Calcium, Plasma 9.2 8.9 - 10.2 mg/dL 02/19/2025 2:14 AM EST [facility] Total Protein 6.5 6.3 - 7.9 g/dL 02/19/2025 2:14 AM EST [facility] Albumin, Plasma 4.0 3.5 - 5.2 g/dL 02/19/2025 2:14 AM EST [facility] AST, Plasma 18 10 - 35 U/L 02/19/2025 2:14 AM EST [facility] ALT, Plasma 16 10 - 35 U/L 02/19/2025 2:14 AM EST [facility] Alkaline Phosphatase, Plasma 62 35 - 104 U/L 02/19/2025 2:14 AM EST [facility] Total Bilirubin, Plasma 0.3 0.2 - 1.1 mg/dL 02/19/2025 2:14 AM EST [facility] eGFRcr 115.9 mL/min/1.7 3m*2 02/19/2025 2:14 AM EST [facility] Comment:Reported eGFRcr in m L/min/1.73m2 is based the CKD-EPI 2020 equation that does not use a race coefficient. Blood Venous blood specimen / Unknown Venipuncture / Unknown 02/19/2025 1:45 AM EST 02/19/2025 1:51 AM EST Wandy Garcia APRN LAB BLOOD ORDERABLES Final Result [facility] [address] [place] [id number] documented in this encounter Visit Diagnoses Diagnosis Abdominal pain of multiple sites- Primary Constipation, unspecified constipation type Adnexal cyst Urinary tract infection without hematuria, site unspecified documented in this encounter Administered Medications Inactive Administered Medications - up to 3 most recent administrations Medication Order MAR Action Action Date Dose Rate Site famotidine PF (Pepcid) injection 20 mg 20 mg, Intravenous, Once, 1 dose, On Wed02/19/25 at 0210, STAT Given 02/19/2025 2:35 AM EST 20 mg ketorolac (Toradol) injection 15 mg 15 mg, Intravenous, Once, 1 dose, On Wed02/19/25 at 0210, STAT Given 02/19/2025 2:35 AM EST 15 mg ondansetron (Zofran) injection 4 mg 4 mg, Intravenous, Once, 1 dose, On Wed02/19/25 at 0330, STAT Given 02/19/2025 3:44 AM EST 4 mg oxyCODONE (Roxicodone) immediate release tablet 5 mg 5 mg, Oral, Once, 1 dose, On Wed02/19/25 at 0330, STAT Given 02/19/2025 3:44 AM EST 5 mg documented in this encounter Active and Recently Administered Medications Times are shown in EST. Scheduled Medication Order 02/17/2025 02/18/2025 02/19/2025 famotidine PF (Pepcid) injection 20 mg (COMPLETED) 20 mg, Intravenous, Once, 1 dose, On Wed02/19/25 at 0210, STAT 0235 (Given - Provid er: Blu Lawrence RN) ketorolac (Toradol) injection 15 mg (COMPLETED) 15 mg, Intravenous, Once, 1 dose, On Wed02/19/25 at 0210, STAT 0235 (Given - Provid er: Blu Lawrence RN) ondansetron (Zofran) injection 4 mg (COMPLETED) 4 mg, Intravenous, Once, 1 dose, On Wed02/19/25 at 0330, STAT 0344 (Given - Provid er: Blu Lawrence RN) oxyCODONE (Roxicodone) immediate release tablet 5 mg (COMPLETED) 5 mg, Oral, Once, 1 dose, On Wed02/19/25 at 0330, STAT 0344 (Given - Provid er: Blu Lawrence RN) documented in this encounter Additional Health Concerns Assessment Noted Time PHQ-9 Depression Total Score: 1 08/12/19 9:40 AM EDT A fall risk assessment has been complete d for the patient 11/27/2024 2:41 PM EDT A Body Mass Index follow-up plan has been documented for the patient 11/27/2024 3:02 PM EDT documented as of this encounter Care Teams Wrist Hemmer Relationship Specialty Start Date End Date Ese Alcantara APRN [facility] [place] [address] PCP - General Family Medicine 09/13/23 documented as of this encounter
--- OUTSIDE RECORDS SUMMARY | 2025-02-28 11:20 | XMS_ITS | Encounter Summary ---
Author Organization Healthcare Address [address] [id number] Care Team Providers Care Popped Corn Oven Attendant Name Role Phone Ese Alcantara MANUFACTURING INSPECTOR Primary Care Provider [phone] Reason for Visit * Reason Comments UTI [facility] cyst on right ov garcia Encounter Details Date Type Department Care Team (Late st Contact Info) Description 02/28/2025 11:20 AM EST Office Visit [facility] [address] [place] [address] Ese Alcantara, MANUFACTURING INSPECTOR [address] [place] [address] Urinary frequency (Primary Dx); Acute UTI; Bilateral ovarian cysts Social History Tobacco Use Types Packs/Day Years Used Date Smoking Tobacco: Never Passive Smoke Exposure: Never Smokeless Tobacco: Never Comments:Vape Alcohol Use Standard Drinks/Week Comments Never 0 (1 standard drink = 0.6 oz pur e alcohol) PHQ-2 Answer Date Recorded Patient Health Questionnaire-2 Score 0 02/28/2025 [facility] of Occupat ional Health - Occupational Stress [...] exercise at this level? Patient declined 04/07/2023 PHQ-9 Answer Date Recorded Patient Health Questionnaire-9 Score 0 02/28/2025 Humiliation, Afraid, Rape, and Kick questionnair e Answer Date Recorded Within the last year, have y ou been afraid of your partner or ex-partner? No 02/28/2025 Within the last year, have y ou been humiliated or emotionally abused in other ways by your partner or ex-partner? No Within the last year, have y ou been kicked, hit, slapped, or otherwise physically hurt by your partner or ex-partner? No 02/28/2025 Within the last year, have y ou been raped or forced to have any kind of sexual activity by your partner or ex-partner? No 02/28/2025 AUDIT-C Answer Date Recorded Q1: How often do you have a drink containing alcohol? Never 11/01/2024 Q2: How many drinks containi ng alcohol do you have on a typical day when you are drinking? Patient does not drink Q3: How often do you have si x or more drinks on one occasion? Never 11/01/2024 Hunger Vital Sign Answer Date Recorded Within the past 12 months, y ou worried that your food would run out before you got the money to buy more. Never true 02/29/20 25 Within the past 12 months, t he food you bought just didn't last and you didn't have money to get more. Never true 02/28/2025 PRAPARE - Transportation Answer Date Re corded In the past 12 months, has l ack of transportation kept you from medical appointments or from getting medications? No 02/04 In the past 12 months, has l ack of transportation kept you from meetings, work, or from getting things needed for daily living? No 02/28/2025 Housing Stability Vital Sign Answer Julio e Recorded In the last 12 months, was t here a time when you were not able to pay the mortgage or rent on time? No 02/28/2025 In the past 12 months, how m any times have you moved where you were living? 0 02/28/2025 At any time in the past [address] [facility], were you homeless or living in a senior care (including now)? No 02/28/2025 [facility] Utilities Answer Date Recorded In the past 12 months has th e electric, gas, oil, or water company threatened to shut off services in your home? No 02/28/2025 Safety and Environment Answer Date Yaniv rded Do you worry that your child may have been physically abused? No 11/12/2023 Do you worry that your child may have been sexua lly abused? No 11/12/2023 Guns In Home Not on file 11/12/2023 Guns Unloaded or Locked Away Not on file 12/2023 PHQ-2A Answer Date Recorded Depression Risk 1 [...] Reading Time Taken Comments Blood Pressure 118/70 02/28/2025 11:15 AM EST Pulse 78 02/28/2025 11:15 AM EST Temperature 36.7 C (98 F) 02/28/2025 11:15 AM EST Respiratory Rate 16 02/28/2025 11:15 AM EST Oxygen Saturation 98% 02/28/2025 11:15 AM EST Inhaled Oxygen Concentration - - Weight 98.6 kg (217 lb 6 oz) 02/28/2025 11:15 AM EST Height 180.3 cm (5' 11 ) 02/28/2025 11:15 AM EST Body Mass Index 30.32 02/28/2025 11:15 AM EST documented in this encounter Functional Status * Over the past 2 weeks, how often have you been bothered by any of the following problems? Question Answer Date of Assessment Author Little interest or pleasure in doing things Not at all 02/28/2025 11:18 AM Gillian Nassar Feeling down, depressed, or hopeless Not at all 02/04 11:18 AM Gillian Nassar Patient Health Questionnaire-2 Score 0 02/04 11:18 AM Gillian Nassar * Question Answer Date of Assessment Author Trouble falling or staying a sleep, or sleeping too much Not at all 02/28/2025 11:18 AM Gillian Nassar Feeling tired or having sugar le energy Not at all 02/28/2025 11:18 AM Gillian Nassar Poor appetite or overeating Not at all 02/28/2025 11 :18 AM Gillian Nassar Feeling bad about yourself - or that you are a failure or have let yourself or your family down Not at all 02/28/2025 11:18 AM Gillian Powell Trouble concentrating on thi ngs, such as reading the newspaper or watching television Not at all 02/28/2025 11:18 AM Gillian Nassar Moving or speaking so slowly that other people could have noticed? Or the opposite - being so fidgety or restless that you have been moving around a lot more than usual. Not at all 02/28/2025 11:18 AM Gillian Gutiérrez Thoughts that you would be b jayne off or hurting yourself in some way Not at all 02/28/2025 11:18 AM Gillian Nassar Patient Health Questionnaire-9 Score 0 02/04 11:18 AM Gillian Nassar * How difficult have these problems made it for you to do your work, take care of things at home, or get along with other people? Answer Date of Assessment Author Not difficult at all 02/28/2025 11:18 AM Gillian Black documented as of this encounter Miscellaneous Notes * Progress Notes - Ese Alcantara, CANDE - 02/28/2025 11:20 AM EST Office Progress Note Subjective Megan Corona is a 19 y.o. female who presents for UTI ([facility] cyst on right ovary). History of Present Illness The patient is a 19-year-old female who presents for follow-up on a recent ER visit. Two weekends ago, she experienced severe lower right abdominal pain and sought emergency care at [facility], where she was initially diagnosed with an ovarian cyst. The following Wednesday night,she visited and was diagnosed with a urinary tract infection (UTI). She had already been treatedfor a UTI the week before and was prescribed a different antibiotic during her visit. Despite two rounds of antibiotics, she believes the UTI has not resolved. She reports no burning sensation during urination but experiences a persistent urge to urinate immediately after voiding, even though nourine is produced. There is no discharge or itching. Her bowel movements are regular, and she reports no back pain. Currently, she is experiencing nausea and menstrual cramps but no abdominal pain. She is not attempting to conceive and is reluctant to resume control due to previous weight gain. She is under the care of a trader and primarily consumes water and Sprite. She prefers towait and see if her symptoms subside before considering a referral to a urologist. A vaginal ultrasound and urine test were conducted at , revealing an infection. A CT scan performed at [facility] showed a normal appendix, no free fluid, and mild constipation. An ultrasound confirmed the presence of cysts. She has a known history of cysts, which were not causing significant discomfort at the time of her hospital visit. She suspects that her cysts may have been symptomatic due to her impending menstrualperiod, which was delayed by two weeks. A test conducted at was negative. Diet: Primarily consumes water and Sprite GYNECOLOGICAL HISTORY: Menstrual Pain: Reports menstrual cramps The following sections have been reviewed and updated during this encounter: Tobacco Allergies Meds Problems Med Hx Surg Hx Fam Hx Objective Blood pressure 118/70, pulse 78, temperature 36.7 ??C (98 ??F), temperature source Oral, resp. rate16, height 1.803 m (5' 11 ), weight 98.6 kg (217 lb 6 oz), SpO2 98%. Body mass index is 30.32 kg/m??. Physical Exam Vitals reviewed. Constitutional: General: She is not in acute distress. Appearance: Normal appearance. Cardiovascular: Rate and Rhythm: Normal rate. Pulmonary: Effort: Pulmonary effort is normal. Abdominal: General: Bowel sounds are normal. Palpations: Abdomen is soft. Tenderness: There is no abdominal tenderness. There is no right CVA tenderness or left CVA tenderness. Neurological: Mental Status: She is alert and oriented to person, place, and time. Psychiatric: Mood and Affect: Mood normal. Behavior: Behavior normal. Thought Content: Thought content normal. Judgment: Judgment normal. Assessment/Plan Diagnoses and all orders for this visit: Urinary frequency - POCT Urinalysis Dipstick Acute UTI Bilateral ovarian cysts Assessment & Plan 1. Urinary Tract Infection (UTI): - Persistent symptoms of UTI despite two rounds of antibiotics. No burning or pain during urination, but frequent urge to urinate with little output. - Urine culture from the hospital showed no growth other than normal martha. - Advised to increase fluid intake and limit potential irritants such as caffeine, red wine, and chocolate. A urine test will be conducted to confirm the diagnosis. - Recommended to continue drinking water and Sprite. Azo suggested to help with irritation. If symptoms worsen, return for further evaluation. -she took a specimen cup home as she could not urinate at this time. -cannot rule out interstitial cystitis 2. Ovarian Cysts: - Known ovarian cysts confirmed by vaginal ultrasound at . Painful around menstrual period. - Recommended to stay hydrated and avoid potential irritants. Follow-up with trader as needed. We reviewed hospital records and results Verbal consent was obtained to use ambient listening technology to assist in the documentation of the encounter: yes documented in this encounter Plan of Treatment Not on file documented as of this encounter Visit Diagnoses Diagnosis Urinary frequency- Primary Acute UTI Urinary tract infection, site not specified Bilateral ovarian cysts Other and unspecified ovarian cyst documented in this encounter Additional Health Concerns Assessment Noted Time PHQ-9 Depression Total Score: 0 02/29/20 11:18 AM EST A fall risk assessment has been complete d for the patient 11/27/2024 2:41 PM EDT A Body Mass Index follow-up plan has been documented for the patient 02/28/2025 11:45 AM EST documented as of this encounter Care Teams Popped Corn Oven Attendant Relationship Specialty Start Date End Date Ese Alcantara APRN [facility] [address] PCP - General Family Medicine 09/13/23 documented as of this encounter
[2025-03-10] VITALS (9 sets, daily range): BP systolic 117–149; BP diastolic 56–92; PULSE 64–86; RESP 18; TEMP 37; O2SAT 98–100; BMI 32.3
--- NOTE | 2025-03-10 19:05 | CT_ITS ---
PROCEDURE INFORMATION: Exam: CT Head Without Contrast Exam date and time: 03/10/2025 7:50 PM Age: 19 years old Clinical indication: Pain; Headache; Additional info: Sudden headache x's 1 wk TECHNIQUE: Imaging protocol: Computed tomography of the head without contrast. Radiation optimization: All CT scans at this facility use at least one of these dose optimization techniques: automated exposure control; mA and/or kV adjustment per patient size (includes targeted exams where dose is matched to clinical indication); or iterative reconstruction. COMPARISON: No relevant prior studies available. FINDINGS: Brain: No evidence of acute parenchymal hemorrhage, extra-axial collection or local regional mass effect. Cerebral ventricles: The ventricles, sulci and cisterns are normal in size and configuration. No hydrocephalus or midline structure shift Pituitary gland and sella: Sellar/parasellar structures, orbits and craniocervical junction are unremarkable Paranasal sinuses: Scattered mucosal thickening throughout the paranasal sinuses. Mastoid air cells: Visualized mastoid air cells are well aerated. Bones: Congenital non-fusion of the posterior arch of C1. No calvarial fracture Soft tissues: Unremarkable. IMPRESSION: 1. No acute intracranial abnormality. No calvarial fracture. 2. Scattered mucosal thickening throughout the paranasal sinuses.
--- NOTE | 2025-03-10 19:07 | ED_ITS ---
Discharge Plan Disposition Patient Disposition: Home, Self-Care Prescriptions Prescriptions: New doxycycline hyclate 100 mg capsule 100 mg PO BID 7 Days Qty: 14 0RF Referrals Follow up/Referrals: Chata Whitney PA [Primary Care Provider, [facility]] - See instructions Activity Restrictions/Add. Instructions Additional Instructions/Restrictions: Your CT scan shows mucus in your sinuses consistent with sinusitis. This is possibly a viral infection or could be bacterial. You are being prescribed a course of antibiotics. You can take 1000 mg Tylenol and 600 mg ibuprofen every 6 hours as needed to help with symptoms. I do encourage you to follow-up with your primary care doctor if symptoms do not improve. If you develop any new or worsening symptoms, such as uncontrolled pain, vision loss, bulging of 1 or both eyes, blurry vision, confusion, high fever, or if you become concerned for your health for any reason, return to the emergency department for evaluation. Clinical Impressions Clinical Impression: Sinusitis, Headache Print Language Print Language: Lithuanian Discharge ED Provider: Rui Perez General Adult HPI General Chief complaint: Headache Stated complaint: Headache Time Seen by Provider: 03/10/25 18:59 History of Present Illness HPI narrative: Megan Corona is a 19-year-old female with a past medical history of heart surgery as an , cholecystectomy who presents to the emergency department for complaints of a headache for 1 week. Patient states that 1 week ago, she developed sudden onset headache. She states that the headache has progressively worsened over the last week. She has tried Tylenol, ibuprofen and other at home methods without relief. She states that she has never had a headache before. She states that when she wakes up, the headache is mostly all over her head but then moves to the right side of her head. She feels pain behind both of her eyes. She describes photosensitivity and phono sensitivity. She denies any neck pain. She denies any numbness, tingling or weakness. She states that her body overall feels weak. Related Data Previous Rx's ?Medication ?Instructions ?Recorded doxycycline hyclate 100 mg capsule 100 mg PO BID 7 day s #14 caps 03/10/25 Allergies Allergy/AdvReac Type Severity Reaction Status Date / Time cefdinir (From Omnicef) Allergy Intermediate Unknown Verified 03/10/25 17:42 allergy reaction latex Allergy Intermediate Rash Verified 03/10/25 17:42 morphine Allergy Intermediate Unknown Verified 03/10/25 17:42 allergy reaction Penicillins Allergy Intermediate Unknown Verified 03/10/25 17:42 allergy reaction Sulfa (Sulfonamide Allergy Intermediate Unknown Verified 03/10/25 17:42 Antibiotics) allergy reaction PFSH PFS Disclaimer: The information contained in this section may have been updated after the patient was seen, as this information can be updated by other users. 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 ([facility] 11/03/2006) Cardiac murmur Surgical History History of cholecystectomy History of open heart surgery Status post patch repair of the right coronary artery fistula ([facility] 11/03/2006) Family History Other No significant family history Social History Smoking Status: Current every day smoker alcohol intake: never current occupational status: student Travel in the last 8 weeks?: None Have you lived/traveled outside US in past 30 days?: No Contact w/someone who lives/traveled outside US past 30 days?: No Exposure to someone with infectious disease in past 14 days?: No Do you have a fever (greater than 100.4 F or 38 C)?: No Have you tested positive for COVID-19?: No Exposed to someone with COVID-19 in past 14 days?: No Do you have a sore throat?: No Do you have a cough?: No Do you have any weakness?: No Do you have any diarrhea?: No Are you experiencing any unusual bleeding?: No Do you have any muscle aches/pain?: No Do you have any abdominal pain?: No Are you experiencing loss of taste or smell?: No ROS Obtained: Yes Systems reviewed as appropriate & no additional complaints except as documented Physical Exam General General appearance: alert and in no apparent distress Head Head exam: atraumatic Eye Eye exam: Present normal appearance, PERRL and EOMI ENT ENT exam: Present normal external ear exam Neck Neck exam: Present full ROM Chest Chest inspection: Present symmetric chest wall rise Respiratory Respiratory exam: Present normal lung sounds bilaterally; Absent respiratory distress Cardiovascular Cardiovascular exam: Present regular rate and normal rhythm Abdominal Exam Abdominal exam: Present soft; Absent tenderness or guarding Extremities Exam Extremities exam: Present normal inspection Back Exam Back exam: Present normal inspection Neurological Exam Neurological exam: Present alert, oriented X3, CN II-XII intact, normal gait and motor sensory deficit Psychiatric Psychiatric exam: Present normal affect Skin Skin exam: Present warm and dry Medical Decision Making Medical Records Screening: Per USPSTF and CDC recommendations, given the prevalence of disease in our region, it is our hospital?s policy to screen for HIV and viral Hepatitis for all patients aged 18 and over and those with ongoing risk factors. Missael Inquiry Pt receiving controlled substance: No Vital Signs: 03/10/25 19:14 03/10/25 19:18 03/10/25 19:45 Temperature 98.6 F Temperature Source Oral Pulse Rate 84 84 Pulse Rate [Right] 84 Respiratory Rate 18 18 18 Blood Pressure 140/90 117/90 Blood Pressure [Right Arm] 149/92 H Blood Pressure Mean [Right Arm] 111 02 Sat by Pulse Oximetry 100 100 100 Oxygen Delivery Method Room Air Room Air Room Air 03/10/25 20:49 Temperature Temperature Source Pulse Rate 65 Pulse Rate [Right] Respiratory Rate 18 Blood Pressure 121/56 L Blood Pressure [Right Arm] Blood Pressure Mean [Right Arm] 02 Sat by Pulse Oximetry 98 Oxygen Delivery Method Room Air Lab Data Lab Results 03/10/25 19:29: WBC 6.0, RBC 5.45 H, Hgb 14.9, Hct 43.9, MCV 80.6 L, MCH 27.3, MCHC 33.9, RDW 12.4, Plt Count 261, MPV 10.5 H, Neut % (Auto) 65.5, Lymph % (Auto) 23.5, [place] % (Auto) 7.3, Eos % (Auto) 2.8, Baso % (Auto) 0.7, Neut # (Auto) 3.9, Lymph # (Auto) 1.4, [place] # (Auto) 0.4, Eos # (Auto) 0.2, Baso # (Auto) 0.0, PT 11.4, INR 1.03, Sodium 135 L, Potassium 4.1, Chloride 103, Carbon Dioxide 25, Anion Gap 11.1, BUN 12, Creatinine 0.70, Estimated Creat Clear 208, Estimated GFR 108, Est GFR ( Amer) 130, Glucose 83, Calcium 9.7, Magnesium 1.9, Serum HCG, Qual Negative 03/10/25 19:29 03/10/25 19:29 Orders (Tests/Meds): ED MEDICATIONS Generic Name Dose Route Start Last Admin Trade Name Freq PRN Reason Stop Dose Admin Doxycycline Hyclate 100 mg 03/10/25 20:48 Doxycycline Hycl 100 Mg Tablet PO 03/10/25 20:49 ONCE ONE Discontinued Medications Generic Name Dose Route Start Last Admin Trade Name Freq PRN Reason Stop Dose Admin Diphenhydramine HCl 25 mg 03/10/25 19:05 03/10/25 19:42 Diphenhydramine 50mg/Ml Vial IV 03/10/25 19:06 25 mg ONCE ONE Administration Lactated Ringer's 1,000 mls @ 999 mls/hr 03/10/25 19:05 03/10/25 20:47 Lactated Ringer's 1000 Ml Bag IV 03/10/25 20:05 Infused .Q1H1M ONE Infusion Ketorolac Tromethamine 15 mg 03/10/25 19:05 03/10/25 19:43 Ketorolac 15mg/Ml Vial IV 03/10/25 19:06 15 mg ONCE ONE Administration Prochlorperazine Edisylate 10 mg 03/10/25 19:05 03/10/25 19:42 Prochlorperazine 10mg/2ml Vial IV 03/10/25 19:06 10 mg ONCE ONE Administration ORDERS Category Date Time Status CT head/brain wo con Stat Cat Scan 03/10/25 19:05 Completed BMP [Basic Metabolic Panel] Stat Lab 03/10/25 19:29 Completed CBC [Complete Blood Count Auto Diff] Stat Lab 03/10/25 19:29 Completed Magnesium Stat Lab 03/10/25 19:29 Completed PT INR [Prothrombin Time INR] Stat Lab 03/10/25 19:29 Completed Serum [HCG Qualitative, Serum] Stat Lab 03/10/25 19:29 Completed Urine Culture Routine Micro 03/10/25 17:45 Received Medical Decision Narrative: Megan Corona is a 19-year-old female with a past medical history of heart surgery as an infant, cholecystectomy who presents to the emergency department for complaints of a headache for 1 week. Patient states that 1 week ago, she developed sudden onset headache. She states that the headache has progressively worsened over the last week. She has tried Tylenol, ibuprofen and other at home methods without relief. She states that she has never had a headache before. She states that when she wakes up, the headache is mostly all over her head but then moves to the right side of her head. She feels pain behind both of her eyes. She describes photosensitivity and phono sensitivity. She denies any neck pain. She denies any numbness, tingling or weakness. She states that her body overall feels weak. She does state that she has been nauseated but has not vomited. On arrival, patient is hemodynamically stable, in no acute distress, breathing comfortably on room air with appropriate oxygen saturation. She is mildly hypertensive. Physical exam, stated above, revealed overall well- appearing female in no distress. She has normal gait. Cranial nerves II through XII appear to be intact. Pupils equal round reactive to light. Extraocular movements intact. No focal neurological deficits. Differential diagnosis includes, but is not limited to: Migraine headache, tension headache, cluster headache, intracranial hemorrhage, intracranial mass, among others. The most morbid conditions were considered and workup was based on these. Workup in the emergency department included: CT head without contrast given sudden onset of nature of his symptoms and no history of headaches. Will obtain basic hematologic labs. Will also treat with migraine cocktail that includes 1 L lactated ringer, 15 mg IV Toradol, 10 mg IV Compazine, 25 mg IV Benadryl. Patient's lab work is reassuring. No leukocytosis, no anemia, platelets within normal limits. Very mild hyponatremia at 135 but electrolytes otherwise unremarkable nonactionable. Negative test. Magnesium normal at 1.9. Urinalysis without evidence of infection or blood. CT head interpreted by me personally. No intracranial hemorrhage, mass or midline shift. Patient does have scattered mucosal thickening throughout the paranasal sinuses. I did ask patient if she had any nasal congestion or runny nose that she denied this. I reassessed patient at 2024 and patient is sleeping comfortably. at bedside states that he thinks that medications have helped significantly. He does state that the patient has had a lot of nasal congestion and runny nose recently. I do feel that the patient symptomatology could be migraine headache versus sinusitis type picture. Patient's fluids are still running. Will reassess once fluids complete. On reassessment at 2051, patient sleeping comfortably and states that she has had improvement in her headache. I do feel that patient has a sinusitis that is likely contributing to her headache versus a migraine headache. Will give dose of doxycycline here and prescribe a 7-day course of doxycycline twice daily for sinusitis with severe symptoms (patient has a penicillin allergy, thus doxycycline was used). Recommended she follow-up with her primary care doctor. Return precautions were given for any red flag symptoms. Patient instructed to take Tylenol and ibuprofen at home to help with symptoms. All questions were answered. Return precautions were given. She was then discharged from the emergency department in stable condition. Critical Care Critical Care Time Critical Care Time: No
--- OUTSIDE RECORDS SUMMARY | 2025-03-10 19:09 | XMS_ITS | Encounter Summary ---
Author Organization Healthcare Address [address] [id number] Care Team Providers Care Photographer Portrait Name Role Phone Ese Alcantara APRN Primary Care Provider [phone] Encounter Details Date Type Department Care Team (Latest Contact Info) Description 02/19/2025 Travel Social History Tobacco Use Types Packs/Day [...] Recorded Patient Health Questionnaire-2 Score 0 11/27/2024 [facility] - Occupational [...] time in the past 12 m [facility], were you homeless or living in a [facility] (including now)? No 06/08/2024 AUDIT-C Answer Date [...] as of this encounter Functional Status * Calculated C-SSRS Risk Score (Lifetime/Recent) Answer Date of Assessment Author No Risk Indicated 02/19/2025 2:15 AM Blu Caballero, NADJA * Question Answer Date of Assessment Author 1. Wish to be (Past 1 Month) No 2:15 AM Blu Caballero, RN 2. Non-Specific Active Suici iain Thoughts (Past 1 Month) No 02/19/2025 2:15 AM Nichole Caballero RN 6. Suicidal Behavior (Lifetime) No 2:15 AM Blu Caballero, RN documented as of this encounter Plan of [...] documented as of this encounter Care Teams Photographer Portrait Relationship Specialty Start Date End Date Ese Alcantara APRN [address] [place] [id number] PCP - General Family Medicine 09/13/23 documented as of this encounter
--- OUTSIDE RECORDS SUMMARY | 2025-03-10 19:09 | XMS_ITS | Clinical Summary ---
Author Organization Healthcare Address [address] [place] [address] Care Team Providers Care Orthodontic Technician Name Role Phone Ese Alcantara APRN Primary Care Provider [phone] Allergies Active Allergy Reactions Criticality Noted Date Comments Latex Rash Low 11/01/2024 Morphine Anaphylaxis,Swelling High 05/08/2019 Cefdinir Rash Low 12/30/2011 Penicillins Rash Low 12/30/2011 Sulfa Drugs Rash Low 06/24/2017 Only Allergic to a Sulfa Drug starting with Z per mother Medications ondansetron ODT (Zofran-ODT) 4 MG disintegrating tablet Dissolve 1 tablet on the tongue every 6 hours as needed for nausea. 12 tablet 02/20/20 25 025 Active etonogestrel-eluti ng contraceptive device 68 MG implant 1 each by Implant route 1 time. 025 Discontinued polyethylene glycol (Miralax) 17 g packet Take 17 g by mouth daily for 7 days. 7 packet 02/20/20 25 025 doxycycline (Adoxa) 100 MG tabletIndications: Urinary tract infection without hematuria, site unspecified Take 1 tablet by mouth 2 times a day for 5 days. Take with a full glass of water and do not lie down for at least 30 minutes after 10 tablet 02/20/20 25 025 Discontinued Active Problems Problem Noted Date Diagnosed Date [...] Encounters Date Type Department Care Team Description 02/28/2025 11:20 AM EST Office Visit [facility] [address] [place] [address] Ese Alcantara, NATURAL RESOURCES MANAGER Urinary frequency (Primary Dx); Acute UTI; Bilateral ovarian cysts 02/28/2025 Travel 02/19/2025 12:50 AM EST - 02/19/2025 6:15 AM EST Emergency [facility] Emergency Department [address] [place] [address] Jamal Herring DO Abdominal pain of multiple sites (Primary Dx); Constipation, unspecified constipation type; Adnexal cyst; Urinary tract infection without hematuria, site unspecified Discharge Disposition: Home or Self Care 02/19/2025 Travel 12/20/2024 Telephone [facility] [place] [address] [place] [address] Candace Jean, NATURAL RESOURCES MANAGER from Last 3 Months Immunizations Immunization Administration [...] Recorded Patient Health Questionnaire-2 Score 0 02/28/2025 [facility] - Occupational Stress [...] time in the past 12 m [facility], were you homeless or living in a [place] [facility] facility (including now)? No 02/28/2025 [facility] Utilities Answer Date Recorded In the past 12 months has [facility] electric, gas, oil, or water company [...] Mass Index 30.32 02/28/2025 11:15 AM EST Plan of Treatment Health Maintenance Due Date Last Done Comments [facility]-Chlamydia and Gonorrhea Screening 2005 [facility]-Infant/Child/Adol SDOH Screenings 2005 Fluoride Varnish 04/30/2006 HPV Vaccines (2 - 2-dose series) 06/26/2018 12/27/2017, 02/01/2017 [id number] Vaccine (1 - season) 2024 [facility]-Influenza Vaccine (#1) 12/04/202402/17, 01/29/2023, 04/23/2022, Additional history exists [facility]- SDOH Screenings 2025 [facility]-Adult SDOH Screenings 2025 02/28/2025 [facility]-Depression Screening 02/28/2026 025, 02/28/2025, 06/18/2022, Additional history exists [facility]-DTaP,Tdap,and Td Vaccines [...] 2006 [facility]-Hepatitis A Vaccines Completed 12/27/2017, 01/05 [facility]-HIV Screening Completed 02/19/2025 [facility]-Hepatitis C Screening Completed 02/19/2025 [facility]-Obesity Intervention Completed 025, 11/27/2024, 11/01/2024, Additional history exists [facility]-Rotavirus Vaccines Aged Out No lo nger eligible based on patient's age to complete this topic Procedures Procedure Name Priority Date/Time Associated Diagnosis Comments US PELVIS TRANSVAGINAL STAT 4:26 AM EST SEND FARRAH MESSAGE STAT 02/19/2025 2: 40 AM EST URINALYSIS MICROSCOPIC FOR UA REFLEX STAT 02/19/2025 2:40 AM EST URINE MYLES PANEL STAT 02/19/2025 2:40 AM EST URINALYSIS WITH REFLEX MICROSCOPIC STAT 02/19/2025 2:40 AM EST URINALYSIS WITH REFLEX MICROSCOPIC AND CULTURE STAT 02/19/2025 2:40 AM EST URINE CULTURE STAT 02/19/2025 2:40 AM EST ED HIV 1/2 ANTIBODY/ANTIGEN SCREEN WITH REFLEX TO HIV I/II DIFFERENTIATION STAT 02/19/2025 1:45 AM EST ED PROTOCOL HIV 1/2 ANTIBODY/ANTIGEN SCREEN W/REFLEX TO HIV 1/2 ANTIBODY DIFFERENTIATION STAT 02/19/2025 1:45 AM EST HEPATITIS C ANTIBODY - ED W/REFLEX TO HCV QUANT PCR STAT 02/19/2025 1:45 AM EST TEST QUALITATIVE PLASMA STAT 02/19/2025 1:45 AM EST LACTATE, VENOUS STAT 02/19/2025 1:45 AM EST LIPASE, PLASMA STAT 02/19/2025 1:45 AM EST CBC WITH AUTO DIFFERENTIAL STAT 02/19/2025 1:45 AM EST COMPREHENSIVE METABOLIC PANEL, PLASMA STAT 02/19/2025 1:45 AM EST from Last 3 Months Results * US Pelvis Transvaginal (non ) [...] on 02/19/2025 5:16 AM us Wandy Garcia NATURAL RESOURCES MANAGER IMG US PROCEDURES Final Res ult * SEND FARRAH MESSAGE (02/19/2025 2:40 AM EST) Urine Urine specimen obtained by clean catch procedure / Unknown Non-blood Collection / Unknown 02/19/2025 2:40 AM EST 02/19/2025 2:46 AM EST Wandy Garcia APRN LAB URINE ORDERABLES Final Result Performing Organization Address [facility] de Phone Number [facility] [address] [place] [address] * Urine Myles Panel (02/19/2025 2:40 AM EST) Extra Sent for Culture 02/19/2025 4:03 AM EST [facility] Urine Urine specimen obtained by clean catch procedure / Unknown Non-blood Collection / Unknown 02/19/2025 2:40 AM EST 02/19/2025 2:46 AM EST Wandy Garcia APRN LAB URINE ORDERABLES Final Result Performing Organization Address [facility] Co de Phone Number [facility] [address] [place] [address] * Urinalysis Microscopic Examination (02/19/2025 2:40 AM EST) Urine Urine specimen obtained by clean catch procedure / Unknown Non-blood Collection / Unknown 02/19/2025 2:40 AM EST 02/19/2025 2:46 AM EST Wandy Linda Garcia APRN LAB URINE ORDERABLES Final Result [facility] [address] [place] [address] * (ABNORMAL) Urinalysis with reflex microscopic (Culture NOT Included) (02/19/2025 2:40 AM EST) Color, Urine Yellow LAB URINALYSIS - AUTOMATED METHOD 02/19/2025 3:02 AM EST [facility] Clarity, Urine Cloudy LAB URINALYSIS - AUTOMATED METHOD 02/19/2025 3:02 AM EST [facility] Spec [place], Urine 1.018 1.005 - 1.030 LAB URINALYSIS - AUTOMATED METHOD 02/19/2025 3:02 AM [facility] pH, Urine 7.5 5.0 - 8.0 LAB URINALYSIS - AUTOMATED METHOD 02/19/2025 3:02 AM [facility] Protein, Urine Negative Negative mg/dL LAB URINALYSIS - AUTOMATED METHOD 02/19/2025 3:02 AM [facility] Glucose, Urine Negative Negative mg/dL LAB URINALYSIS - AUTOMATED METHOD 02/19/2025 3:02 AM [facility] Ketones, Urine Negative Negative mg/dL LAB URINALYSIS - AUTOMATED METHOD 02/19/2025 3:02 AM [facility] Blood, Urine Negative Negative LAB URINALYSIS - AUTOMATED METHOD 02/19/2025 3:02 AM [facility] Bilirubin, Urine Negative Negative LAB URINALYSIS - AUTOMATED METHOD 02/19/2025 3:02 AM [facility] Urobilinogen, Urine 0.2 0.2 to 1.0 mg/dL LAB URINALYSIS - AUTOMATED METHOD 02/19/2025 3:02 AM [facility] Leukocytes, Urine Small(A) Negative LAB URINALYSIS - AUTOMATED METHOD 02/19/2025 3:02 AM [facility] Nitrite, Urine Negative Negative LAB URINALYSIS - AUTOMATED METHOD 02/19/2025 3:02 AM [facility] RBC, Urine <1 0 to 3 /HPF 02/19/2025 3:02 AM [facility] Comment:This result was prev iously suppressed from the chart. WBC, Urine 21 - 50(A) 0 to 5 /HPF 02/19/2025 3:02 AM EST [facility] Comment:This result was prev iously suppressed from the chart. Squamous Epithelial Cells 6 - 10(A) 0 to 5 /HPF 02/19/2025 3:02 AM EST [facility] Comment:This result was prev iously suppressed from the chart. Hyaline Casts 0 - 2 0 to 5 /LPF 02/19/2025 3:02 AM EST [facility] Comment:This result was prev iously suppressed from the chart. Bacteria, Urine Present Negative 02/19/2025 3:02 AM EST [facility] Comment:This result was prev iously suppressed from the chart. Urine Urine specimen obtained by clean catch procedure / Unknown Non-blood Collection / Unknown 02/19/2025 2:40 AM EST 02/19/2025 2:46 AM EST Narrative [facility] - 02/19/2025 3:02 AM EST Performed by manual method Wandy Garcia [facility] URINE ORDERABLES Final Result Performing Organization Address City/[facility] Co de Phone Number [facility] [address] [place] [address] * Urine Culture (02/19/2025 2:40 AM EST) [facility] Culture 10,000 - 100,000 CFU/mL Mixed urogenital, fecal, or skin martha present. 02/20/2025 8:[address] [facility] Urine Urine specimen obtained by clean catch procedure / Unknown Non-blood Collection / Unknown 02/19/2025 2:40 AM EST 02/19/2025 2:46 AM EST Wandy Linda Garcia [facility] MICROBIOLOGY - GENERAL ORDERABLES Final Result Performing Organization Address City/[facility]/ZIP Co de Phone Number [facility] [address] [place] [address] * ED HIV 1/2 Antibody/Antigen Screen w/Reflex to HIV 1/2 Differentiation (02/19/2025 1:45 AM EST) HIV 1 & 2 Antibody/Antigen Screen Non Reactive Non Reactive 02/19/2025 2:23 AM EST [facility] Comment:Screening for HIV 1 & 2 antibodies, and P24 antigen is NONREACTIVE. No confirmatory testing is required. Blood Venous blood specimen / Unknown Venipuncture / Unknown 02/19/2025 1:45 AM EST 02/19/2025 1:51 AM EST Wandy Garcia APRN LAB BLOOD ORDERABLES Final Result Performing Organization Address City/[facility] Co de Phone Number [facility] [address] [place] [address] * Lactic acid, venous (02/19/2025 1:45 AM EST) Pathologist [facility] Lactate, Venous, Whole Blood 1.0 0.5 - 2.2 mmol/L LAB HEMATOLOGY METHOD 02/19/2025 1:55 AM EST [facility] Blood Venous blood specimen / Unknown Venipuncture / Unknown 02/19/2025 1:45 AM EST 02/19/2025 1:51 AM EST Wandy Garcia APRN LAB BLOOD ORDERABLES Final Result Performing Organization Address [facility] Phone Number [facility] [address] [place] [address] * Hepatitis C Antibody - ED (02/19/2025 1:45 AM EST) Pathologist [facility] Hepatitis C Antibody Negative Negative 02/19/2025 2:19 AM EST [facility] Blood Venous blood specimen / Unknown Venipuncture / Unknown 02/19/2025 1:45 AM EST 02/19/2025 1:51 AM EST Wandy Garcia APRN LAB BLOOD ORDERABLES Final Result Performing Organization Address City/[facility] de Phone Number [facility] [address] [place] [address] * CBC w/diff (02/19/2025 1:45 AM EST) Pathologist [facility] WBC Count 8.09 3.70 - 10.30 10*3/uL LAB HEMATOLOGY METHOD 02/19/2025 1:54 AM EST [facility] RBC Count 5.05 3.90 - 5.20 10*6/uL LAB HEMATOLOGY METHOD 02/19/2025 1:54 AM EST [facility] HGB 13.6 11.2 - 15.7 g/dL LAB HEMATOLOGY METHOD 02/19/2025 1:54 AM EST [facility] HCT 40.9 34.0 - 45.0 % LAB HEMATOLOGY METHOD 02/19/2025 1:54 AM EST [facility] Platelet Count 243 155 - 369 10*3/uL LAB HEMATOLOGY METHOD 02/19/2025 1:54 AM EST [facility] MCV 81 79 - 98 fL LAB HEMATOLOGY METHOD 02/19/2025 1:54 AM EST [facility] MCH 26.9 26.0 - 32.0 pg LAB HEMATOLOGY METHOD 02/19/2025 1:54 AM EST [facility] MCHC 33.3 30.7 - 35.5 g/dL LAB HEMATOLOGY METHOD 02/19/2025 1:54 AM [facility] RDW 12.4 11.5 - 14.5 % LAB HEMATOLOGY METHOD 02/19/2025 1:54 AM EST [facility] MPV 10.6 8.8 - 12.5 fL LAB HEMATOLOGY METHOD 02/19/2025 1:54 AM [facility] nRBC 0.0 <=0.0 per 100 WBCs LAB HEMATOLOGY METHOD 02/19/2025 1:54 AM EST [facility] Differential Type Automated LAB HEMATOLOGY METHOD 02/19/2025 1:54 AM EST [facility] Neutrophils % 63 % LAB HEMATOLOGY METHOD 02/19/2025 1:54 AM EST [facility] Lymphocytes % 25 % LAB HEMATOLOGY METHOD 02/19/2025 1:54 AM EST [facility] Monocytes % 9 % LAB HEMATOLOGY METHOD 02/19/2025 1:54 AM EST [facility] Eosinophils % 2 % LAB HEMATOLOGY METHOD 02/19/2025 1:54 AM EST [facility] Basophils % 1 % LAB HEMATOLOGY METHOD 02/19/2025 1:54 AM EST [facility] Immature Granulocytes % 0 % LAB HEMATOLOGY METHOD 02/19/2025 1:54 AM EST [facility] Neutrophils Absolute 5.11 1.60 - 6.10 10*3/uL LAB HEMATOLOGY METHOD 02/19/2025 1:54 AM EST [facility] Lymphocytes Absolute 2.02 1.20 - 3.90 10*3/uL LAB HEMATOLOGY METHOD 02/19/2025 1:54 AM EST [facility] Monocytes Absolute 0.70 0.30 - 0.90 10*3/uL LAB HEMATOLOGY METHOD 02/19/2025 1:54 AM EST [facility] Eosinophils Absolute 0.19 0.00 - 0.50 10*3/uL LAB HEMATOLOGY METHOD 02/19/2025 1:54 AM EST [facility] Basophils Absolute 0.05 0.00 - 0.10 10*3/uL LAB HEMATOLOGY METHOD 02/19/2025 1:54 AM EST [facility] Immature Granulocytes Absolute 0.02 0.00 - 0.06 10*3/uL LAB HEMATOLOGY METHOD 02/19/2025 1:54 AM EST [facility] Blood Venous blood specimen / Unknown Venipuncture / Unknown 02/19/2025 1:45 AM EST 02/19/2025 1:51 AM EST Narrative [facility] - 02/19/2025 1:54 AM EST Therapeutic decision making should be based on absolute values, rather than percentages. Wandy Linda Garcia NATURAL RESOURCES MANAGER LAB BLOOD ORDERABLES Final Result [facility] [address] [place] [address] * hCG qualitative (02/19/2025 1:45 AM EST) Pathologist [facility] Test Negative Negative 02/19/2025 2:14 AM EST [facility] Blood Venous blood specimen / Unknown Venipuncture / Unknown 02/19/2025 1:45 AM EST 02/19/2025 1:51 AM EST Narrative [facility] - 02/19/2025 2:14 AM EST Reference Range: Males and non- females: Negative. Wandy CrowdRise NATURAL RESOURCES MANAGER LAB BLOOD ORDERABLES Final Result [facility] [address] [place] [address] * (ABNORMAL) Lipase (02/19/2025 1:45 AM EST) Pathologist [facility] Lipase, Plasma 18(L) 19 - 63 U/L 02/19/2025 2:14 AM EST [facility] Blood Venous blood specimen / Unknown Venipuncture / Unknown 02/19/2025 1:45 AM EST 02/19/2025 1:51 AM EST us Wandy Garcia NATURAL RESOURCES MANAGER LAB BLOOD ORDERABLES Final Result Performing Organization Address City/State/[facility] Co de Phone Number [facility] [address] [place] [address] * CMP (02/19/2025 1:45 AM EST) Glucose, Plasma 90 74 - 99 mg/dL 02/19/2025 2:14 AM EST [facility] BUN, Plasma 8 7 - 21 mg/dL 02/19/2025 2:14 AM EST [facility] Creatinine, Plasma 0.76 0.60 - 1.10 mg/dL 02/19/2025 2:14 AM EST [facility] BUN/Creatinine Ratio 11 02/19/2025 2:14 AM EST [facility] Sodium, Plasma 137 136 - 145 mmol/L 02/19/2025 2:14 AM EST [facility] Potassium, Plasma 4.2 3.6 - 4.9 mmol/L 02/19/2025 2:14 AM EST [facility] Chloride, Plasma 103 97 - 107 mmol/L 02/19/2025 2:14 AM EST [facility] CO2, Plasma 28 22 - 29 mmol/L 02/19/2025 2:14 AM EST [facility] Anion Gap 6 6 - 16 mmol/L 02/19/2025 2:14 AM EST [facility] Total Calcium, Plasma 9.2 8.9 - 10.2 mg/dL 02/19/2025 2:14 AM EST [facility] Total Protein 6.5 6.3 - 7.9 g/dL 02/19/2025 2:14 AM EST [facility] Albumin, Plasma 4.0 3.5 - 5.2 g/dL 02/19/2025 2:14 AM EST [facility] AST, Plasma 18 10 - 35 U/L 02/19/2025 2:14 AM EST [facility] ALT, Plasma 16 10 - 35 U/L 02/19/2025 2:14 AM EST [facility] Alkaline Phosphatase, Plasma 62 35 - 104 U/L 02/19/2025 2:14 AM EST [facility] Total Bilirubin, Plasma 0.3 0.2 - 1.1 mg/dL 02/19/2025 2:14 AM EST [facility] eGFRcr 115.9 mL/min/1.7 3m*2 02/19/2025 2:14 AM EST [facility] Comment:Reported eGFRcr in m L/min/1.73m2 is based the CKD-EPI 2020 equation that does not use a race coefficient. Blood Venous blood specimen / Unknown Venipuncture / Unknown 02/19/2025 1:45 AM EST 02/19/2025 1:51 AM EST us Wandy Garcia NATURAL RESOURCES MANAGER LAB BLOOD ORDERABLES Final Result [facility] [address] [place] [address] from Last 3 Months Insurance ANTH Care Teams Orthodontic Technician Relationship Specialty Start Date End Date Ese Alcantara APRN [address] [place] [address] PCP - General Family Medicine 09/13/23
--- OUTSIDE RECORDS SUMMARY | 2025-03-10 19:09 | XMS_ITS | Clinical Summary ---
Author Organization [facility] Address [address] [place] [address] Phone [email or web address] Care Team Providers Care Tooling Specialist Name Role Phone Unavailable Primary Care Provider [...] Insect bite of left lower leg 09/01/2024 Immunizations Immunization Administration Dates Next Due Tdap [...] Date Last Done Comments Dental Cleaning/Exam 2005 HPV Immunization (2 - 2-dose series) 06/26/2018 12/27/2017 Covid-19 Immunization ( season) 2024 Influenza Immunization (#1) 12/04/202402/03, 01/29/2023, 04/23/2022, Additional history exists Tetanus Diphtheria and Pertussis Immunization (8 - Td or Tdap) 10/04/2034 10/04/2024, 02/01/2017, 09/11/2009, Additional history exists Hepatitis B Immunization Completed 007, 08/31/2006, 2005, Additional history exists HIB Immunization Completed 12/22/2006, , 08/31/2006, Additional history exists Pneumococcal Immunization Aged Out 2006, 08/31/2006, 2005, Additional history exists No longer eligible based on patient's age to complete this topic Polio Immunization Completed 09/11/2009, 0 08/31/2006, 03/03/2006, Additional history exists Varicella Immunization Completed 08/20/2010, 2006 Hepatitis A Immunization Completed 12/27/2017, 01/05 Meningococcal Immunization Completed 04/23/2022 Men B Immunization Completed 06/18/2022, 04/23/2022 Insurance OPT OUT NO COPAY NB
--- OUTSIDE RECORDS SUMMARY | 2025-03-10 19:09 | XMS_ITS | Encounter Summary ---
Author Organization Healthcare Address [address] [id number] Care Team Providers Care Automatic Coil Machine Operator Name Role Phone Ese Alcantara APRN Primary Care Provider [phone] Encounter Details Date Type Department Care Team (Latest Contact Info) Description 02/28/2025 Travel Social History Tobacco Use Types Packs/Day Years Used Date Smoking Tobacco: Never Passive Smoke Exposure: Never Smokeless Tobacco: Never Comments:Vape Alcohol Use Standard Drinks/Week Comments Never 0 (1 standard drink = 0.6 oz pur e alcohol) PHQ-2 Answer Date Recorded Patient Health Questionnaire-2 Score 0 02/28/2025 [facility] - Occupational Stress Questionnaire Answer Date [...] any time in the past 12 m [facility], were you homeless or living in a care home (including now)? No 02/28/2025 [facility] Utilities Answer Date Recorded In the [...] Not difficult at all 02/28/2025 11:18 AM EST Gillian Corona documented as of this encounter Plan of [...] documented as of this encounter Care Teams Automatic Coil Machine Operator Relationship Specialty Start Date End Date Ese Alcantara, PROFESSOR OF THEATRE [address] [place] [address] PCP - General Family Medicine 09/13/23 documented as of this encounter
[2025-03-10 19:39] LABS: Hematocrit 43.9 % (37.0-47.0); Hemoglobin 14.9 g/dL (12.2-16.2); Immature Granulocytes % 0.2 %; Mean Corpuscular HGB Conc 33.9 g/dL (31.8-35.4); Mean Corpuscular Hemoglobin 27.3 pg (27.0-31.2); Mean Corpuscular Volume 80.6 fl (81-99); Nucleated Red Blood Cells % 0 %; Platelet Count 261 K/mm3 (142-424); Red Blood Count 5.45 M/mm3 (4.20-5.40); Red Cell Distribution Width-SD 35.8 fL; White Blood Count 6.0 K/mm3 (4.5-13.0)
[2025-03-10] MEDS: PROCHLORPERAZINE 10MG/2ML VIAL 10 MG IV (19:42)
[2025-03-10 19:43] LABS: HCG Qualitative, Serum Negative (Negative)
[2025-03-10] MEDS: LACTATED RINGERS 1000ML 1,000 ML 999 ML IV (19:43)
[2025-03-10] MEDS: KETOROLAC 15MG/ML VIAL 15 MG IV (19:43)
[2025-03-10 19:44] LABS: Anion Gap 11.1 mEq/L (5-15); Blood Urea Nitrogen 12 mg/dl (7-17); Calcium 9.7 mg/dl (8.4-10.2); Carbon Dioxide 25 mmol/L (22.0-30.0); Chloride 103 mmol/L (98-107); Creatinine Clearance Estimated 208 mL/min (50-200); Creatinine,Serum 0.70 mg/dl (0.52-1.04); Estimated Glomerular Filt Rate 108 ml/min (>60); GFR (African American) 130 ML/MIN (>60); Glucose 83 mg/dl (74-100); Magnesium 1.9 mg/dl (1.6-2.3); Potassium 4.1 mmoL/L (3.5-5.1); Sodium 135 mmol/L (136-145)
[2025-03-10 19:45] LABS: INR 1.03 (0.9-1.1); Prothrombin Time 11.4 seconds (10.1-12.5)
[2025-03-10] MEDS: DOXYCYCLINE HYCL 100 MG TABLET PO (20:59)
== END 2025-03-10 21:02 | disposition home or self-care (01) ==
PROVIDERS: Emergency Provider Student in an Organized Health Care Education/Training Program; PCP Student in an Organized Health Care Education/Training Program
DX: J01.90 Acute sinusitis, unspecified (principal); R51.9 Headache, unspecified
CPT/HCPCS: 70450; 80048; 83735; 84703; 85025; 85610; 87086; 96361; 96374; 96375; 99285; J0780; J1200; J1885; J7120